=== PATIENT | female | born 1960 | race African-American/Black ===

== ENCOUNTER 2017-01-26 09:28 | Inpatient (IN) | payer MEDICAID, MEDICARE, OTHER ==
[~2017-01-26] VITALS: Ht 160 cm; Wt 79.5 kg
[~2017-01-26 09:28] MED LIST: ALBU8.5H3 INH; ALPR0.5T6 PO; ATOR40TA68 PO; BEN50 PO; DIGO125T PO; DULO30CA47 PO; GABA100C14 PO; LEVO100T87 PO; LEVO125T75 PO; LEVO500T72 PO; METF500T4 PO; PANT40TA4 PO; TADA20TA33 PO; TREP1.743 IH; ZOLP10TA5 PO
[2017-01-26] MEDS ORDERED: ALBUTEROL 0.5% (NEB) 2.5 MG/0.5 ML AMP HHN STA (09:40)
[2017-01-26] MEDS ORDERED: AZITHROMYCIN 500MG/NS (PMX) 250 ML IV STA (09:40)
[2017-01-26] MEDS ORDERED: SODIUM CHLORIDE 0.9% 1L BAG IV* STA (09:40)
[2017-01-26] MEDS ORDERED: CEFTRIAXONE 1 GM/50 ML (PMX) 50 ML IVPB STA (09:40)
[2017-01-26] MEDS ORDERED: METHYLPREDNISOLONE 125 MG INJ IV ONE (10:00)
[2017-01-26] MEDS ORDERED: IPRATROPIUM (NEB) 0.5 MG/2.5 ML AMP HHN ONE (10:00)
[2017-01-26 10:37] LABS: ADD SCAN DIFF NO
[2017-01-26 10:41] LABS: BASOPHIL # 0.1 10^3/ul (0.0-0.1); BASOPHILS % 1.3 % (0.0-2.0); EOSINOPHILS # 0.6 10^3/ul (0.0-0.5); EOSINOPHILS % 8.2 % (0.0-7.0); HEMATOCRIT 38.3 % (37.0-47.0); HEMOGLOBIN 12.2 g/dl (12.0-16.0); LYMPHOCYTES # 3.7 10^3/ul (0.8-2.9); LYMPHOCYTES % 52.9 % (15.0-51.0); MEAN CORPUSCULAR HGB CONC 31.9 g/dl (32.0-37.0); MEAN PLATELET VOLUME 11.8 fl (7.4-10.4); MONOCYTE # 0.7 10^3/ul (0.3-0.9); MONOCYTES % 10.4 % (0.0-11.0); NEUTROPHIL # 1.9 10^3/ul (1.6-7.5); NEUTROPHILS % 27.1 % (39.0-77.0); NUCLEATED RED BLOOD CELLS% 0.3 /100WBC (0.0-0.0); PLATELET COUNT 257 10^3/UL (140-415); RED BLOOD COUNT 4.21 10^6/ul (4.20-5.40); RED CELL DISTRIBUTION WIDTH 15.2 % (11.5-14.5)
--- NOTE | 2017-01-26 10:51 | RADRPT ---
PROCEDURE: Chest Radiograph. CLINICAL INDICATION: Shortness of breath TECHNIQUE: Single frontal chest radiograph. COMPARISON: Chest radiograph 11/26/2015 FINDINGS: Heart size within normal limits. Atherosclerotic calcifications are present. There is mild right b asilar atelectasis and associated elevation of the right hemidiaphragm. There is prominence of the right hilum which appears to be at least in part due to patient rotation. No confluent or lobar infi ltrate is seen. The bones are intact. IMPRESSION: 1. Right basilar atelectasis with associated elevation of the right hemidiaphragm. 2. Prominence of the right hilum is likely due in part to patient rotation. Consider CT chest if i ndicated. 3. Atherosclerotic vascular disease RPTAT: KK .Sven iLzarraga MD, Date Time Electronically viewed and signed by .Sven Lizarraga MD, MD on 01/26/2017 10:51 .B/
[2017-01-26 10:52] LABS: ALBUMIN 3.8 g/dl (3.3-4.9); CHLORIDE 102 mmol/L (97-110)
[2017-01-26 10:53] LABS: SODIUM 144 mmol/L (135-144)
[2017-01-26 10:55] LABS: ALBUMIN/GLOBULIN RATIO 0.86; ALKALINE PHOSPHATASE 327 IU/L (42-121); ANION GAP 14 (8-16); ASPARTATE AMINO TRANSFERASE 67 IU/L (15-46); BILIRUBIN,INDIRECT 0.2 mg/dl (0-1.1); BILIRUBIN,TOTAL 0.2 mg/dl (0.2-1.3); CARBON DIOXIDE 33 mmol/L (21-31); CREATININE 0.78 mg/dl (0.44-1.00); INR 0.91; PROTIME 12.2 Sec (12.2-14.2); TOTAL PROTEIN 8.2 g/dl (6.1-8.1)
[2017-01-26 10:56] LABS: ALANINE AMINOTRANSFERASE 52 IU/L (13-69); BLOOD UREA NITROGEN 16 mg/dl (7-20); CALCIUM 9.9 mg/dl (8.4-10.2); GLUCOSE 119 mg/dl (70-220); PARTIAL THROMBOPLASTIN TIME 25.6 Sec (25.0-35.0)
[2017-01-26 11:12] LABS: TROPONIN-I < 0.012 ng/ml (0.00-0.12)
[2017-01-26 12:36] LABS: ADD UMIC YES; URINE BILIRUBIN (Dip) NEGATIVE (NEGATIVE); URINE BLOOD (Dip) NEGATIVE (NEGATIVE); URINE COLOR LT. YELLOW (YELLOW); URINE GLUCOSE (Dip) NEGATIVE (NEGATIVE); URINE KETONES (Dip) NEGATIVE (NEGATIVE); URINE LEUKOCYTE ESTERASE (Dip) 1+ (NEGATIVE); URINE NITRITE (Dip) NEGATIVE (NEGATIVE); URINE TOTAL PROTEIN (Dip) NEGATIVE (NEGATIVE); URINE UROBILINOGEN (Dip) 0.2 E.U./dL (0.1-1.0)
[2017-01-26] MEDS ORDERED: DOCUSATE SODIUM 100 MG CAP PO PRN (13:00)
[2017-01-26] MEDS ORDERED: ALPRAZOLAM 0.5 MG TAB PO PRN (13:00)
[2017-01-26] MEDS ORDERED: ALBUTEROL 0.5% (NEB) 2.5 MG/0.5 ML AMP HHN PRN (13:00)
[2017-01-26] MEDS ORDERED: BISACODYL 10 MG SUPP PR PRN (13:00)
[2017-01-26] MEDS ORDERED: ZOLPIDEM 5 MG TAB PO PRN (13:00)
[2017-01-26] MEDS ORDERED: ACETAMINOPHEN 325 MG TAB PO PRN ×2 (13:00)
[2017-01-26] MEDS ORDERED: ONDANSETRON 4 MG INJ IV PRN ×2 (13:00)
[2017-01-26] MEDS ORDERED: morphine 2 MG INJ IV PRN (13:00)
[2017-01-26] MEDS ORDERED: MAGNESIUM HYDROXIDE 30ML CUP PO PRN (13:00)
[2017-01-26] MEDS ORDERED: NACL 0.9% 3 ML SYG IV SCH (13:00)
[2017-01-26] MEDS ORDERED: ALBUTEROL HFA 8 GM INHALER INH PRN (13:00)
[2017-01-26] MEDS ORDERED: TREPROSTINIL IH SCH (13:00)
--- NOTE | 2017-01-26 13:06 | ERA ---
ER Documentation Chief Complaint Date/Time DATE: 01/26/17 TIME: 13:05 Chief Complaint sob for the past 4 days. progressively getting worse. no fevers. coughing HPI Patient is a 56-year-old female with sarcoidosis, pulmonary hypertension, and diabetes. She has shortness of breath. She feels like this is similar to when she had pneumonia in the past. She flew to [place] last Wednesday. She does have trouble breathing. The symptoms have been worsening. She tried a nebulizer and oxygen at home. Upon review of of old medical record she has had multiple visits to the ER for various complaints. ROS All systems reviewed and are negative except as per history of present illness. Medications Home Meds Active Scripts Levofloxacin* (Levaquin*) 500 Mg Tablet, 500 MG PO DAILY, #7 TAB Prov:SEBAS ORTIZ MD 12/02/15 Reported Medications Albuterol Sulfate* (Proair HFA*) 8.5 Gm Hfa.aer.ad, 1 PUFF INH Q4 Y for WHEEZING AND SOB, #1 INHALER 11/15/15 Tadalafil (Adcirca) 20 Mg Tablet, 40 MG PO DAILY, TAB 11/15/15 Atorvastatin* (Atorvastatin*) 40 Mg Tablet, 40 MG PO QHS, #30 TAB 11/15/15 Digoxin* (Digoxin*) 0.125 Mg Tab, 0.125 MG PO DAILY, #30 TAB 11/15/15 Pantoprazole* (Pantoprazole*) 40 Mg Tablet.dr, 40 MG PO DAILY, TAB 11/15/15 Gabapentin* (Gabapentin*) 100 Mg Capsule, 100 MG PO TID, #90 CAP 11/15/15 Metformin* (Glucophage*) 500 Mg Tab, 250 MG PO BID, #30 TAB 11/15/15 Levothyroxine Sodium* (Levothyroxine Sodium*) 125 Mcg Tablet, 125 MCG PO BEFORE BREAKFAST, #30 TAB PER PT ALTERNATING WITH LEVOTHYROXINE 100 MCG AND LEVOTHYROXINE 125 11/15/15 Zolpidem Tartrate* (Zolpidem Tartrate*) 10 Mg Tablet, 10 MG PO QHS Y for INSOMNIA, #30 TAB 11/15/15 Duloxetine Hcl* (Duloxetine Hcl*) 30 Mg Capsule.dr, 30 MG PO DAILY, #30 CAP 11/15/15 Treprostinil (Tyvaso) 1.74 Mg/2.9 Ml Ampul.neb, 1.74 MG IH QID, EA 11/15/15 Alprazolam* (Alprazolam*) 0.5 Mg Tablet, 0.5 MG PO BID Y for ANXIETY, TAB 11/15/15 Diphenhydramine Hcl* (Benadryl*) 50 Mg Cap, 50 MG PO DAILY for ITCHING, CAP 11/15/15 Discontinued Reported Medications Levothyroxine Sodium* (Levothyroxine Sodium*) 100 Mcg Tablet, 100 MCG PO BEFORE BREAKFAST, #30 TAB PER PT ALTERNATING WITH LEVOTHYROXINE 125 MCG AND LEVOTHYROXINE 100 MCG 11/15/15 Allergies Allergies: Coded Allergies: No Known Drug Allergy (Verified Allergy, Unknown, 01/26/17) PMhx/Soc History of Surgery: Yes (Umbilical hernia repair, tummy tuck, spleenectomy, breast enhancement) Anesthesia Reaction: No Hx Neurological Disorder: No Hx Respiratory Disorders: Yes (Asthma, PNA, bronchitis, pulmonary HTN) Hx Cardiac Disorders: Yes (HTN) Hx Psychiatric Problems: Yes (Manic/depression) Hx Miscellaneous Medical Probl: Yes (sarcoidosis) Hx Alcohol Use: Yes (Vodka/wine 3x week) Hx Substance Use: No Hx Tobacco Use: No Smoking Status: Current every day smoker FmHx Family History: diabetes Physical Exam Vitals Vital Signs Date Time Temp Pulse Resp B/P Pulse Ox O2 Delivery O2 Flow Rate FiO2 01/26/17 12:33 78 19 115/78 94 Nasal Cannula 2.0 01/26/17 10:10 78 20 96 Nasal Cannula 2.0 01/26/17 10:10 2.0 01/26/17 09:46 Nasal Cannula 2.0 01/26/17 09:46 Nasal Cannula 2 01/26/17 09:31 98.5 94 30 137/60 89 Physical Exam Const: Moderate distress secondary to shortness of breath Head: Atraumatic Eyes: Normal Conjunctiva ENT: Normal External Ears, Nose and Mouth. Neck: Full range of motion..~ No meningismus. Resp: Significant wheezing diffusely with inability to speak in full sentences secondary to shortness of breath Cardio: Regular rate and rhythm, no murmurs Abd: Soft, non tender, non distended. Normal bowel sounds Skin: No petechiae or rashes Back: No midline or flank tenderness Ext: No cyanosis, or edema Neur: Awake and alert Psych: Normal Mood and Affect Result Diagram: 01/26/17 1005 01/26/17 1005 Results 24 hrs Laboratory Tests Test 01/26/17 10:05 01/26/17 12:00 Activated Partial Thromboplast Time 25.6Sec Alanine Aminotransferase (ALT/SGPT) 52IU/L Albumin 3.8g/dl Albumin/Globulin Ratio 0.86 Alkaline Phosphatase 327IU/L Anion Gap 14 Aspartate Amino Transf (AST/SGOT) 67IU/L Basophils # 0.110^3/ul Basophils % 1.3% Blood Urea Nitrogen 16mg/dl Calcium Level 9.9mg/dl Carbon Dioxide Level 33mmol/L Chloride Level 102mmol/L Creatinine 0.78mg/dl Direct Bilirubin 0.00mg/dl Eosinophils # 0.610^3/ul Eosinophils % 8.2% Globulin 4.40g/dl Glucose Level 119mg/dl Hematocrit 38.3% Hemoglobin 12.2g/dl INR International Normalized Ratio 0.91 Indirect Bilirubin 0.2mg/dl Lactic Acid Level 1.4mmol/L 3.4mmol/L Lymphocytes # 3.710^3/ul Lymphocytes % 52.9% Mean Corpuscular Hemoglobin 29.0pg Mean Corpuscular Hemoglobin Concent 31.9g/dl Mean Corpuscular Volume 91.0fl Mean Platelet Volume 11.8fl Monocytes # 0.710^3/ul Monocytes % 10.4% Neutrophils # 1.910^3/ul Neutrophils % 27.1% Nucleated Red Blood Cells # 0.010^3/ul Nucleated Red Blood Cells % 0.3/100WBC Platelet Count 15773^3/UL Potassium Level 5.0mmol/L Prothrombin Time 12.2Sec Prothrombin Time Ratio 1.0 Red Blood Count 4.2110^6/ul Red Cell Distribution Width 15.2% Sodium Level 144mmol/L Total Bilirubin 0.2mg/dl Total Protein 8.2g/dl Troponin I < 0.012ng/ml White Blood Count 7.010^3/ul Urine Bilirubin NEGATIVE Urine Clarity CLEAR Urine Color LT. YELLOW Urine Glucose NEGATIVE% Urine Hemoglobin NEGATIVE Urine Ketones NEGATIVE Urine Leukocyte Esterase 1+ Urine Microscopic RBC Pending Urine Microscopic WBC Pending Urine Nitrite NEGATIVE Urine Specific [place] 1.010 Urine Total Protein NEGATIVE Urine Urobilinogen 0.2 E.U./dL Urine pH 6.5 Current Medications Medications (Trade) Dose Ordered Sig/Linda Route PRN Reason Start Time Stop Time Status Last Admin Dose Admin Sodium Chloride 2460 ml 2,460 ml BOLUS OVER 2 HOURS STAT IV* 01/26/17 09:40 01/26/17 09:42 DC 01/26/17 10:11 Ceftriaxone Sodium 50 ml @ 100 mls/hr ONCE STAT IVPB 01/26/17 09:40 01/26/17 10:09 DC 01/26/17 10:10 Azithromycin (Zithromax 500mg/ NS (Pmx)) 250 ml @ 250 mls/hr ONCE STAT IV 01/26/17 09:40 01/26/17 10:39 DC 01/26/17 10:57 Albuterol (Proventil 0.5% (Neb)) 15 mg ONCE STAT HHN 01/26/17 09:40 01/26/17 09:42 DC 01/26/17 10:09 Ipratropium [place] (Atrovent 0.02% (Neb)) 0.5 mg ONCE ONCE HHN 01/26/17 10:00 01/26/17 10:01 DC Methylprednisolone Sodium Succinate (Solu-Medrol) 125 mg ONCE ONCE IV 01/26/17 10:00 01/26/17 10:01 DC 01/26/17 10:07 Ondansetron HCl (Zofran Inj) 4 mg BRIDGE ORDER PRN IV NAUSEA AND/OR VOMITING 01/26/17 13:00 01/27/17 12:59 Acetaminophen (Tylenol Tab) 650 mg ER BRIDGE PRN PO MILD PAIN/FEVER 01/26/17 13:00 01/27/17 12:59 Albuterol (Ventolin Hfa) 1 puff Q4 PRN INH WHEEZING AND SOB 01/26/17 13:00 01/26/17 13:00 DC Alprazolam (Xanax) 0.5 mg BID PRN PO ANXIETY 01/26/17 13:00 UNV Atorvastatin Calcium (Lipitor) 40 mg QHS PO 01/26/17 21:00 UNV Digoxin (Digoxin) 0.125 mg DAILY PO 01/27/17 09:00 UNV Diphenhydramine HCl (Benadryl) 50 mg DAILY PO 01/27/17 09:00 UNV Duloxetine HCl (Cymbalta) 30 mg DAILY PO 01/27/17 09:00 UNV Gabapentin (Neurontin) 100 mg TID PO 01/26/17 13:00 UNV Levothyroxine Sodium (Synthroid) 125 mcg BEFORE BREAKFAST PO 01/27/17 07:00 UNV Metformin HCl (Glucophage) 250 mg BID PO 01/26/17 21:00 UNV Pantoprazole (Protonix Tab) 40 mg DAILY PO 01/27/17 09:00 UNV Zolpidem Tartrate (Ambien) 10 mg QHS PRN PO INSOMNIA 01/26/17 13:00 UNV Miscellaneous Information 40 mg DAILY PO 01/27/17 09:00 UNV Miscellaneous Information 1.74 mg 1.74 mg QID IH 01/26/17 13:00 UNV Levofloxacin/ Dextrose 150 ml @ 100 mls/hr Q24H IVPB 01/26/17 13:00 UNV Sodium Chloride (NS) 1,000 ml @ 75 mls/hr [id number] IV 01/26/17 12:55 UNV IV Flush (NS 3 ml) 3 ml PER PROTOCOL IV 01/26/17 13:00 UNV Ondansetron HCl (Zofran Inj) 4 mg Q6H PRN IV NAUSEA AND/OR VOMITING 01/26/17 13:00 UNV Methylprednisolone Sodium Succinate (Solu-Medrol) 60 mg Q6 IV 01/26/17 18:00 UNV Acetaminophen (Tylenol Tab) 650 mg Q6H PRN PO PAIN LEVEL 1-3 OR FEVER 01/26/17 13:00 UNV Morphine Sulfate (morphine) 2 mg Q4H PRN IV PAIN LEVEL 7-10 01/26/17 13:00 UNV Docusate Sodium (Colace) 100 mg Q12H PRN PO CONSTIPATION 01/26/17 13:00 UNV Magnesium Hydroxide (Milk Of Mag) 30 ml DAILY PRN PO CONSTIPATION 01/26/17 13:00 UNV Bisacodyl (Dulcolax Supp) 10 mg DAILY PRN [place] CONSTIPATION 01/26/17 13:00 UNV Pantoprazole (Protonix Tab) 40 mg DAILY@06 PO 01/27/17 06:00 UNV Enoxaparin Sodium (Lovenox) 40 mg DAILY SC 01/27/17 09:00 UNV Albuterol (Proventil 0.5% (Neb)) 2.5 mg Q8 HHN 01/26/17 14:00 UNV Albuterol (Proventil 0.5% (Neb)) 2.5 mg Q4H RESP THERAPY PRN HHN SHORTNESS OF BREATH 01/26/17 13:00 UNV Procedures/MDM EKG read by me: Rate/Rhythm: Regular rate and rhythm at a rate of 81 Intervals: Normal Impression: No evidence of ischemia or arrhythmia Chest x-ray shows no pneumonia per radiology. Admit MDM: Patient's infectious symptoms have not stabilized and the patient is at risk of rapid decompensation. The patient will be admitted for careful hydration, antibiotic therapy, and infectious source control. Severe Sepsis criteria: Infectious source: Bronchitis End organ damage indicated by: Lactate greater than 2 Sepsis Management: Time of recognition of sepsis: 12:00 Within 3 hours of recognition: Blood cultures x 2 before broad-spectrum antibiotics: Yes 30 ml/kg NS bolus Completed Initial lactate 1.4 Repeat lactate 3.4 Time of recognition of septic shock: No septic shock Septic Shock Assessment: Any lactic acid > 4.0 No Persistent hypotension (SBP < 90 or 40 mmHg drop, MAP < 65) despite 30 mL/kg IV fluid bolus No Volume Re-assessment for Septic Shock (post 30 ml/kg bolus): No septic shock at this time Persistent Hypotension Treatment: Comfort care No Central line Not Required Vasopressor started Not required I considered further perfusion assessment with CVP measurement, SCVO2, bedside ultrasound volume assessment, passive leg raise, trial of further fluid bolus. And proceeded with 30 ml/kg fluid bolus of NSS, broad spectrum antibiotics, and admission. The patient was also given a breathing treatment and steroids for significant wheezing. She did have recent travel but at this point I doubt true pulmonary embolism as the patient has an exam with significant wheezing. Accepting Care Team Current data and ongoing care discussed. Admitting Physician: Dr. Keita as the patient has regal ACO Transitions Rn Care Coordinator(s): None Outstanding Data: Culture results Critical Care: Critical care time 35 minutes excluding all billable procedures Emergent fluid management while maintaining close respiratory support. Provision of immediate and broad-spectrum antibiotic therapy. Simultaneous assessment for possible sources in order to direct targeted therapy. Consideration for invasive and chemical support to prevent cardiopulmonary collapse. Departure Diagnosis: Primary Impression: Severe sepsis Additional Impressions: Shortness of breath Bronchitis Condition: SOPHIA Eckert MD Jan 26, 2017 13:06
[2017-01-26 13:15] LABS: BACTERIA,URINE RARE; URINE RBCS NONE SEEN /HPF (0)
--- NOTE | 2017-01-26 14:03 | CONS ---
Date/Time of Note Date/Time of Note DATE: 01/26/17 TIME: 13:56 Assessment/Plan Assessment/Plan Additional Assessment/Plan Chest x-ray was reviewed from today which is showing a right hilar prominence likely from underlying pulmonary hypertension. There are minimal if any interstitial changes present bilaterally. Assessment and recommendation; next 1. Patient admitted for shortness of breath which is likely on account of underlying asthma exacerbation. Based on chest x-ray I do not see any evidence of recurrence of sarcoidosis. 2. Multiple other comorbidities which all appear fairly stable. 3. Possibly superimposed acute bronchitis. Continue current treatment. According to the patient she is "100%" feeling better. Consultation Date/Type/Reason Admit Date/Time Date of Consultation: Jan 26, 2017 Type of Consultation: Pulmonary Reason for Consultation Consultation obtained for evaluation and treatment of asthma exacerbation and sarcoidosis. History of presenting; patient is a pleasant 56-year-old F [place] lady who came into the emergency room with a 3-4 day history of increasing shortness of breath chest congestion sputum production and wheezing. The patient was in [facility] and was trying to get back to [place] and en route , the patient became short of breath with coughing, wheezing .she was attended to by paramedics and according to her she did well but over the last 24-36 hours her condition again became worse with increasing shortness of breath coughing and wheezing at that point she decided to come to the emergency room. The patient has been diagnosed with asthma exacerbation and acute bronchitis. She denies any fever chills chest pain. Denies any sinus symptoms. Denies any abdominal pain nausea vomiting. Past medical history; 1. History of pulmonary sarcoidosis diagnosed in 1999 with a lung biopsy. The patient has had 2 relapses and according to her she was supposed to be on long- term prednisone but because of significant side effect the patient has opted not to take long-term prednisone treatment. 2. History of asthma. 3. 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 4. Hypothyroidism. 5. Neuropathy. 6. History of breast implants. 7. History of umbilical hernia ,currently awaiting evaluation. 8. History of diabetes. 9. Pulmonary hypertension. Next Medications; were reviewed. Next Allergies; none. Social history; most of any alcohol tobacco or drug abuse. Family history; she is single she has 1 son. No show any sarcoidosis in the family. Occupational history; patient is a student. Has had miscellaneous off his drops. Review of systems; denies any headache, any visual changes. Any hearing loss. Any sinus symptoms. Denies any chest pain, angina. Denies any fever chills. Denies any sore throat, body aches, myalgias. Denies any skin changes. Any arthritis. No wheezing shortness of breath as outlined above. Denies any hemoptysis. Patient has gained weight. Denies any edema, orthopnea. Does complain of chronic dyspnea on exertion. Denies any urinary symptoms, any melena or hematochezia. General examination; middle-aged woman currently in no distress awake and alert. Social History Smoking Status: Current every day smoker Exam/Review of Systems Vital Signs Vitals Vital Signs Date Time Temp Pulse Resp B/P Pulse Ox O2 Delivery O2 Flow Rate FiO2 01/26/17 13:24 78 16 115/78 98 Nasal Cannula 2.0 01/26/17 09:31 98.5 Exam HEENT examination; supple neck, no JVD. No lymphadenopathy. Midline trachea. Good dentition. Pupils are midsize and reactive to light. No thyromegaly. No neck bruits. Chest examination; bilateral wheezing. S1-S2 audible, no murmurs. Regular rhythm. Abdomen examination; soft, protuberant. Bowel sounds audible. There is a left upper quadrant scar. Abdomen is nontender. Extremity examination; no peripheral edema. No clubbing. Pulses 2+ bilaterally. [employer] examination; cranial nerves are normal. There is no motor deficit. Results Result Diagram: 01/26/17 1005 01/26/17 1005 Results 24 hrs Laboratory Tests Test 01/26/17 10:05 01/26/17 12:00 Activated Partial Thromboplast Time 25.6 Alanine Aminotransferase (ALT/SGPT) 52 Albumin 3.8 Albumin/Globulin Ratio 0.86 Alkaline Phosphatase 327 H Anion Gap 14 Aspartate Amino Transf (AST/SGOT) 67 H Basophils # 0.1 Basophils % 1.3 Blood Urea Nitrogen 16 Calcium Level 9.9 Carbon Dioxide Level 33 H Chloride Level 102 Creatinine 0.78 Direct Bilirubin 0.00 Eosinophils # 0.6 H Eosinophils % 8.2 H Globulin 4.40 H Glucose Level 119 Hematocrit 38.3 Hemoglobin 12.2 INR International Normalized Ratio 0.91 Indirect Bilirubin 0.2 Lactic Acid Level 1.4 3.4 H Lymphocytes # 3.7 H Lymphocytes % 52.9 H Mean Corpuscular Hemoglobin 29.0 Mean Corpuscular Hemoglobin Concent 31.9 L Mean Corpuscular Volume 91.0 Mean Platelet Volume 11.8 #H Monocytes # 0.7 Monocytes % 10.4 Neutrophils # 1.9 Neutrophils % 27.1 L Nucleated Red Blood Cells # 0.0 Nucleated Red Blood Cells % 0.3 H Platelet Count 257 Potassium Level 5.0 Prothrombin Time 12.2 Prothrombin Time Ratio 1.0 Red Blood Count 4.21 Red Cell Distribution Width 15.2 H Sodium Level 144 Total Bilirubin 0.2 Total Protein 8.2 H Troponin I < 0.012 White Blood Count 7.0 # Urine Bacteria RARE Urine Bilirubin NEGATIVE Urine Clarity CLEAR Urine Color LT. YELLOW Urine Epithelial Cells RARE Urine Glucose NEGATIVE Urine Hemoglobin NEGATIVE Urine Ketones NEGATIVE Urine Leukocyte Esterase 1+ H Urine Microscopic RBC NONE SEEN Urine Microscopic WBC 0-2 Urine Nitrite NEGATIVE Urine Specific [place] 1.010 Urine Total Protein NEGATIVE Urine Urobilinogen 0.2 E.U./dL Urine pH 6.5 Medications Medications Current Medications Alprazolam (Xanax) 0.5 mg BID PRN PO ANXIETY; Start 01/26/17 at 13:00; Status UNV Atorvastatin Calcium (Lipitor) 40 mg QHS PO ; Start 01/26/17 at 21:00; Status UNV Digoxin (Digoxin) 0.125 mg DAILY PO ; Start 01/27/17 at 09:00; Status UNV Diphenhydramine HCl (Benadryl) 50 mg DAILY PO ; Start 01/27/17 at 09:00; Status UNV Duloxetine HCl (Cymbalta) 30 mg DAILY PO ; Start 01/27/17 at 09:00; Status UNV Gabapentin (Neurontin) 100 mg TID PO ; Start 01/26/17 at 13:00; Status UNV Metformin HCl (Glucophage) 250 mg BID PO ; Start 01/26/17 at 21:00; Status UNV Pantoprazole (Protonix Tab) 40 mg DAILY PO ; Start 01/27/17 at 09:00; Status UNV Zolpidem Tartrate (Ambien) 10 mg QHS PRN PO INSOMNIA; Start 01/26/17 at 13:00; Status UNV Miscellaneous Information 40 mg DAILY PO ; Start 01/27/17 at 09:00; Status UNV Miscellaneous Information 1.74 mg 1.74 mg QID IH ; Start 01/26/17 at 13:00; Status UNV Levofloxacin/ Dextrose 150 ml @ 100 mls/hr Q24H IVPB ; Start 01/26/17 at 13:00 ; Status UNV Sodium Chloride (NS) 1,000 ml @ 75 mls/hr [id number] IV ; Start 01/26/17 at 12:55 ; Status UNV Ondansetron HCl (Zofran Inj) 4 mg Q6H PRN IV NAUSEA AND/OR VOMITING; Start at 13:00; Status UNV Methylprednisolone Sodium Succinate (Solu-Medrol) 60 mg Q6 IV ; Start 01/26/17 at 18:00; Status UNV Acetaminophen (Tylenol Tab) 650 mg Q6H PRN PO PAIN LEVEL 1-3 OR FEVER; Start at 13:00; Status UNV Morphine Sulfate (morphine) 2 mg Q4H PRN IV PAIN LEVEL 7-10; Start 01/26/17 at 13:00; Status UNV Docusate Sodium (Colace) 100 mg Q12H PRN PO CONSTIPATION; Start 01/26/17 at 13: 00; Status UNV Magnesium Hydroxide (Milk Of Mag) 30 ml DAILY PRN PO CONSTIPATION; Start at 13:00; Status UNV Bisacodyl (Dulcolax Supp) 10 mg DAILY PRN [place] CONSTIPATION; Start 01/26/17 at 13 :00; Status UNV Pantoprazole (Protonix Tab) 40 mg DAILY@06 PO ; Start 01/27/17 at 06:00; Status UNV Enoxaparin Sodium (Lovenox) 40 mg DAILY SC ; Start 01/27/17 at 09:00; Status UNV Albuterol (Proventil 0.5% (Neb)) 2.5 mg Q8 HHN ; Start 01/26/17 at 14:00; Status UNV CATHERINE ESPINAL Jan 26, 2017 14:03
[2017-01-26] MEDS ORDERED: DEXTROSE 50% 50 ML SYRINGE IV PRN ×4 (14:30→15:30)
[2017-01-26] MEDS ORDERED: GLUCOSE GEL 15 GRAM TUBE PO PRN ×4 (14:30→15:30)
[2017-01-26] MEDS ORDERED: LEVOFLOXACIN 750MG/D5W (PMX) 150 ML IVPB SCH (14:30)
[2017-01-26] MEDS ORDERED: GLUCAGON 1 MG INJ IM PRN ×2 (14:30→15:30)
[2017-01-26] MEDS ORDERED: GLUCOSE GEL 15 GRAM TUBE BUCCAL PRN ×2 (14:30→15:30)
[2017-01-26 14:39] VITALS: BP 142/71; PULSE 76; RESP 22
[2017-01-26 14:41] VITALS: Ht 160 cm; Wt 79.5 kg
[2017-01-26] MEDS: SOD CHLORIDE 0.9% 1,000 ML IV SCH (15:24)
[2017-01-26] MEDS: [UNRECOGNIZED DRUG - REMARK] XX SCH ×2 (15:30→23:12)
[2017-01-26] MEDS: ALBUTEROL 0.5% (NEB) 2.5 MG/0.5 ML AMP HHN SCH (16:08)
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
[2017-01-26] MEDS: METHYLPREDNISOLONE 125 MG INJ IV SCH ×2 (17:09→23:09)
[2017-01-26] MEDS: INSULIN ASPART [NOVOLOG] 3 ML PEN SC SCH (17:09)
[2017-01-26] MEDS: metFORMIN 500 MG TAB PO SCH (17:10)
[2017-01-26] MEDS: LEVOFLOXACIN 750MG/D5W (PMX) 150 ML IVPB SCH (17:11)
[2017-01-26 19:58] VITALS: BP 164/92; PULSE 85; RESP 18
[2017-01-26] MEDS: CARISOPRODOL 350 MG TAB PO SCH (20:11)
[2017-01-26] MEDS: IBUPROFEN 600 MG TAB PO PRN (20:16)
[2017-01-26] MEDS: GABAPENTIN 100 MG CAP PO SCH (20:26)
[2017-01-26] MEDS ORDERED: ATORVASTATIN 40 MG TAB PO SCH (21:00)
[2017-01-26 23:16] VITALS: BP 117/68; PULSE 88
[2017-01-27] MEDS: SOD CHLORIDE 0.9% 1,000 ML IV SCH (02:37)
[2017-01-27] MEDS ORDERED: PANTOPRAZOLE (EC) 40 MG TAB PO SCH ×2 (06:00→09:00)
[2017-01-27] MEDS: METHYLPREDNISOLONE 125 MG INJ IV SCH ×2 (06:15→12:00)
[2017-01-27] MEDS ORDERED: LEVOTHYROXINE 125 MCG TAB PO SCH (07:00)
[2017-01-27 07:14] LABS: ADD SCAN DIFF NO; HEMATOCRIT 35.2 % (37.0-47.0); HEMOGLOBIN 11.3 g/dl (12.0-16.0); LYMPHOCYTES # 1.7 10^3/ul (0.8-2.9); LYMPHOCYTES % 29.3 % (15.0-51.0); MEAN CORPUSCULAR HEMOGLOBIN 29.1 pg (29.0-33.0); MEAN CORPUSCULAR HGB CONC 32.1 g/dl (32.0-37.0); MEAN CORPUSCULAR VOLUME 90.7 fl (82.0-101.0); MEAN PLATELET VOLUME 11.8 fl (7.4-10.4); MONOCYTE # 0.1 10^3/ul (0.3-0.9); MONOCYTES % 1.6 % (0.0-11.0); NEUTROPHILS % 68.9 % (39.0-77.0); NUCLEATED RED BLOOD CELLS% 0.3 /100WBC (0.0-0.0); PLATELET COUNT 264 10^3/UL (140-415); RED BLOOD COUNT 3.88 10^6/ul (4.20-5.40); RED CELL DISTRIBUTION WIDTH 15.3 % (11.5-14.5); WHITE BLOOD COUNT 5.7 10^3/ul (4.8-10.8)
[2017-01-27 07:20] LABS: ALBUMIN 3.6 g/dl (3.3-4.9)
[2017-01-27 07:21] LABS: POTASSIUM 4.7 mmol/L (3.5-5.1)
[2017-01-27] MEDS: ALBUTEROL 0.5% (NEB) 2.5 MG/0.5 ML AMP HHN SCH ×2 (07:22)
[2017-01-27 07:23] LABS: ALBUMIN/GLOBULIN RATIO 0.85; BILIRUBIN,INDIRECT 0.1 mg/dl (0-1.1); BILIRUBIN,TOTAL 0.1 mg/dl (0.2-1.3); CREATININE 0.68 mg/dl (0.44-1.00); TOTAL PROTEIN 7.8 g/dl (6.1-8.1)
[2017-01-27 07:24] LABS: CALCIUM 9.6 mg/dl (8.4-10.2); MAGNESIUM 1.5 mg/dl (1.7-2.5)
[2017-01-27] MEDS: [UNRECOGNIZED DRUG - REMARK] XX SCH ×2 (07:30→13:23)
[2017-01-27 08:11] VITALS: BP 116/68; RESP 20
[2017-01-27] MEDS: CARISOPRODOL 350 MG TAB PO SCH (08:12)
[2017-01-27] MEDS: metFORMIN 500 MG TAB PO SCH (08:13)
[2017-01-27] MEDS: INSULIN ASPART [NOVOLOG] 3 ML PEN SC SCH (08:16)
[2017-01-27] MEDS: IBUPROFEN 600 MG TAB PO PRN (08:23)
[2017-01-27] MEDS ORDERED: DIPHENHYDRAMINE 50 MG CAP PO PRN (09:00)
[2017-01-27] MEDS ORDERED: DIPHENHYDRAMINE 50 MG CAP PO SCH (09:00)
[2017-01-27] MEDS ORDERED: ENOXAPARIN 40 MG/0.4 ML SYG SC SCH (09:00)
[2017-01-27] MEDS ORDERED: TADALAFIL 40 MG PO SCH (09:00)
[2017-01-27] MEDS: GABAPENTIN 100 MG CAP PO SCH ×2 (09:00→13:00)
[2017-01-27] MEDS ORDERED: DULOXETINE 30 MG CAP DR PO SCH (09:00)
--- NOTE | 2017-01-27 09:47 | RADRPT ---
PROCEDURE: XR Chest AP portable CLINICAL INDICATION: Hypoxemia TECHNIQUE: An AP portable radiograph of the chest was submitted. COMPARISON: 01/26/2017 FINDINGS: Support Hardware: None Cardiovascular: The cardiovascular silhouette appears unremarkable. The right hilum remains prominen t. Lung Yeager: Slight pleural parenchymal scarring is again seen at the right pulmonary apex. The monika g yeager are otherwise clear. Pleural Spaces: No pneumothorax or pleural effusion is identified. Osseous Structures: The osseous structures appear intact. Soft Tissues: The soft tissues appear generous. IMPRESSION: 1. Mild pleural parenchymal scarring is again seen at the right pulmonary apex. 2. The right hilum remains prominent. This is suspicious for underlying right hilar adenopathy. Physician Apryl Date Time Electronically viewed and signed by Physician Apryl on 01/27/2017 09:47 RH/
--- NOTE | 2017-01-27 11:52 | PN ---
DATE: 01/27/2017 PULMONARY FOLLOWUP SUBJECTIVE: The patient Liza is stable this morning. Still has some shortness of breath on exer tion with expiratory wheeze. PHYSICAL EXAMINATION: VITAL SIGNS: Temperature 98, pulse 78, blood pressure 116/63, O2 saturation 96% on 2 L nasal cannul a. NECK: Supple. No JVD or lymphadenopathy. CARDIAC: S1, S2, no added sounds or murmurs. CHEST: Diminished air entry bilaterally. ABDOMEN: Soft, nontender. No guarding or rebound. EXTREMITIES: No cyanosis, clubbing, edema. NEUROLOGIC: Grossly intact. No focal deficits. LABORATORY DATA: White count 5.7, hemoglobin 11.3, platelets 263. BUN 18, creatinine 0.68. IMAGING: Chest x-ray shows mild pleural scarring right apex and prominent right hilum. IMPRESSION AND PLAN: 1. Acute bronchitis. 2. History of sarcoidosis with history of splenectomy, previously followed by Dr. Callie Niño at [facility], now followed by Dr. Genevieve Berger at [facility]. 3. History of pulmonary hypertension on Adcirca for pulmonary hypertension, followed by Dr. Berger at [facility]. 4. History of hypoxemia, currently not on home O2. PLAN: 1. Continued supplemental O2. 2. Continue bronchodilators. 3. Continue steroids. 4. Resumption of pulmonary hypertension medications. 5. Follow up with [facility] pulmonary clinic. Dictated By: IFDE ALEGRIA/TRISTAN Conf#: [id number] DID#: [id number]
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
--- NOTE | 2017-01-27 12:44 | PDOCDIS ---
Discharge Instructions CONDITION Patient Condition: Stable HOME CARE INSTRUCTIONS: Special Diet: ADA diet ACTIVITY: Activity Restrictions: Slowly Increase Activity FOLLOW UP/APPOINTMENTS Appointments Follow up with PCP within 1 week Follow up with [facility] pulmonary within 1 to 2 weeks SONDRA AGUERO Jan 27, 2017 12:44
[2017-01-27] MEDS ORDERED: LEVO750T25 PO (12:46)
[2017-01-27] MEDS ORDERED: PANT40TA4 PO (12:46)
[2017-01-27] MEDS ORDERED: MED4DP PO (12:46)
[2017-01-27] MEDS ORDERED: DIGOXIN 0.125 MG TAB PO SCH (13:00)
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
[2017-01-27] MEDS: LEVOFLOXACIN 750MG/D5W (PMX) 150 ML IVPB SCH (15:18)
[2017-01-27] MEDS ORDERED: METHYLPREDNISOLONE 125 MG INJ IV SCH (21:00)
== END 2017-01-27 17:09 | disposition home or self-care (01) | DRG 202 ==
LOC: E/R 09:28 → PP2 12:48
PROVIDERS: ADMIT Internal Medicine; ATTEND Internal Medicine
DX: J20.9 Acute bronchitis, unspecified (principal); J45.901 Unspecified asthma with (acute) exacerbation; I27.2 Other secondary pulmonary hypertension; D86.0 Sarcoidosis of lung; G62.9 Polyneuropathy, unspecified; E11.9 Type 2 diabetes mellitus without complications; E03.9 Hypothyroidism, unspecified; G89.29 Other chronic pain
CPT/HCPCS: 36415; 71010; 80053; 81001; 81003; 82962; 83036; 83605; 83735; 84484; 85025; 85610; 85730; 87040; 87086; 93005; 94640; 94644; 94664; 96374; 96375; J0456; J0696; J1650; J1815; J1956; J2930; J7030

== ENCOUNTER 2018-07-13 19:30 | Inpatient (IN) | END 2018-07-14 15:15 | disposition home or self-care (01) | DRG 864 ==

== ENCOUNTER 2019-06-19 11:18 | Observation (INO) | payer MEDICARE, OTHER ==
[~2019-06-19] VITALS: Ht 160 cm; Wt 78.6 kg
[~2019-06-19 11:18] MED LIST changes: +ALBU2.5V3 NEB; -ALBU8.5H3 INH; +ALBU90AE INHALATION; -ATOR40TA68 PO; -DIGO125T PO; -DULO30CA47 PO; +ESCI20TA38 PO; +HYDR50TA15 PO; +IBUP-1541 PO; -LEVO100T87 PO; -LEVO125T75 PO; +LEVO500T48 PO; -LEVO500T72 PO; +LOSA25TA12 PO; +METF500T24 PO; -METF500T4 PO; +MULT-105 PO; +MUPI22OI2 TOP; +SULF-182 PO; +TADA20TA PO; -TADA20TA33 PO; -TREP1.743 IH
--- NOTE | 2019-06-19 11:30 | ERD ---
ER Documentation Chief Complaint Chief Complaint sob and leg swelling x 2 days HPI The patient is a 58-year-old female, resenting to the ER because of acute dyspnea, bilateral leg edema, orthopnea, PND for the last 2 days. She had s imilar symptoms previously, denies fever, cough, neck pain, chest pain, complains of chronic abdominal pain, denies dysuria, diarrhea, constipation. She does not smoke, use 2 L nasal cannula continuously Medical history: CAD, asthma, sarcoidosis, pulmonary hypertension, depression, anxiety Past surgical history: Umbilical neuropathy, abdominoplasty, breast implant, splenectomy ROS All systems reviewed and are negative except as per history of present illness. Medications Home Meds Reported Medications Zolpidem Tartrate* (Zolpidem Tartrate*) 10 Mg Tablet, 10 MG PO QHS PRN for INSOMNIA, #30 TAB 07/13/18 Pantoprazole* (Pantoprazole*) 40 Mg Tablet.dr, 40 MG PO AC BREAKFAST, TAB 07/13/18 Multivitamin with Minerals (Multivitamins with Minerals) 1 Each Tablet, 1 EACH PO DAILY, TAB 07/13/18 Metformin Hcl* (Metformin Hcl*) 500 Mg Tablet, 250 MG PO WITH BREAKFAST DINNE, #60 TAB 07/13/18 Losartan Potassium* (Losartan Potassium*) 25 Mg Tablet, 25 MG PO DAILY, TAB 07/13/18 Hydroxyzine Hcl* (Hydroxyzine Hcl*) 50 Mg Tablet, 50 MG PO QHS PRN for ITCHING, #30 TAB 07/13/18 Gabapentin* (Gabapentin*) 100 Mg Capsule, 100 MG PO NEEDED, #90 CAP TAKE 1 TO 3 CAP PRN 07/13/18 Escitalopram Oxalate* (Escitalopram Oxalate*) 20 Mg Tablet, 20 MG PO DAILY, #30 TAB 07/13/18 Diphenhydramine Hcl* (Benadryl*) 50 Mg Cap, 50 MG PO NEEDED PRN for ITCHING, CAP 07/13/18 Alprazolam* (Alprazolam*) 0.5 Mg Tablet, 0.5 MG PO Q8H PRN for ANXIETY, TAB 07/13/18 Albuterol Sulfate (Proair Respiclick) 90 Mcg Aer.pow.ba, 1 PUFF INHALATION Q4 PRN for WHEEZING AND SOB, #1 BOTTLE 07/13/18 Albuterol Sulfate* (Albuterol Sulfate* Neb) 0.083%-3 Ml Neb, 2.5 MG NEB Q3H PRN for WHEEZING AND SOB, #30 VIAL 07/13/18 Discontinued Reported Medications Tadalafil (Cialis) 20 Mg Tablet, 20 MG PO DAILY, TAB 07/13/18 Ibuprofen* (Ibuprofen*) 400 Mg Tablet, 400 MG PO Q8H PRN for PAIN, TAB 07/13/18 Discontinued Scripts Levofloxacin* (Levaquin*) 500 Mg Tablet, 500 MG PO DAILY for 5 Days, TAB Prov:LACISONDRA Mcclain 07/14/18 Sulfamethoxazole/Trimethoprim (Sulfamethoxazole-Tmp Ds Tablet) 1 Each Tablet, 1 TAB PO BID for 5 Days, TAB Prov:LACISONDRA 07/14/18 Mupirocin* (Bactroban*) 2% -22 Gram Oint...g., 1 APPLIC TOP TID, #1 TUB Prov:LACIDavidDeyaniraLOUANNVIOLET Mcclain 07/14/18 Allergies Allergies: Coded Allergies: No Known Drug Allergy (Verified Allergy, Unknown, 07/13/18) PMhx/Soc History of Surgery: Yes (r heart catheterization, umbilical hernia repair, tummy tuck, breast enhanc) Anesthesia Reaction: No Hx Neurological Disorder: No Hx Respiratory Disorders: Yes (asthma, bronchitis, sarcoidosis) Hx Cardiac Disorders: Yes (HTN, r heart catheterization, pulmonary HTN, high chol) Hx Psychiatric Problems: Yes (anxiety) Hx Miscellaneous Medical Probl: Yes Hx Alcohol Use: No Hx Substance Use: No Hx Tobacco Use: No Physical Exam Vitals Vital Signs Date Temp Pulse Resp B/P (MAP) Pulse Ox O2 O2 Flow FiO2 Time Delivery Rate 06/19/19 97.9 100 18 107/63 98 Nasal 2.0 16:12 (78) Cannula 06/19/19 97.9 100 20 95/64 (74) 98 Nasal 2.0 15:01 Cannula 06/19/19 97.9 96 20 106/75 98 Nasal 2.0 14:00 (85) Cannula 06/19/19 Nasal 2 11:43 Cannula 06/19/19 Nasal 2.0 11:43 Cannula 06/19/19 97.9 105 22 115/80 97 Nasal 2.0 11:43 (92) Cannula 06/19/19 97.9 109 22 110/56 91 11:24 (74) Physical Exam Const: No acute distress. Head: Atraumatic. Eyes: Normal Conjunctiva. ENT: Normal External Ears, Nose and Mouth. Neck: Full range of motion. No meningismus. Resp: Decreased breath sounds bilaterally. Basilar crackle Cardio: Regular rate and rhythm. Abd: Soft, non distended, normal bowel sounds, non tender. Skin: No petechiae or rashes. Back: No midline or flank tenderness. Ext: Bilateral leg edema, mild bilateral calf tenderness Neur: Awake and alert. No focal deficit Psych: Normal Mood and Affect. Result Diagram: 06/19/19 1148 06/19/19 1148 Results 24 hrs Laboratory Tests Test 06/19/19 11:48 White Blood Count 6.2 10^3/ul Red Blood Count 4.39 10^6/ul Hemoglobin 10.8 g/dl Hematocrit 35.3 % Mean Corpuscular Volume 80.4 fl Mean Corpuscular Hemoglobin 24.6 pg Mean Corpuscular Hemoglobin Concent 30.6 g/dl Red Cell Distribution Width 24.9 % Platelet Count 163 10^3/UL Mean Platelet Volume fl Immature Granulocytes % 0.600 % Neutrophils % 50.5 % Lymphocytes % 31.3 % Monocytes % 15.7 % Eosinophils % 0.8 % Basophils % 1.1 % Nucleated Red Blood Cells % 1.9 /100WBC Immature Granulocytes # 0.040 10^3/ul Neutrophils # 3.1 10^3/ul Lymphocytes # 1.9 10^3/ul Monocytes # 1.0 10^3/ul Eosinophils # 0.1 10^3/ul Basophils # 0.1 10^3/ul Nucleated Red Blood Cells # 0.1 10^3/ul Prothrombin Time 15.3 Sec Prothrombin Time Ratio 1.2 INR International Normalized Ratio 1.20 Activated Partial Thromboplast Time 31.5 Sec D-Dimer 3367.84 ng/ml D-Dimer Comment Sodium Level 137 mmol/L Potassium Level 3.6 mmol/L Chloride Level 89 mmol/L Carbon Dioxide Level 36 mmol/L Anion Gap 12 Blood Urea Nitrogen 11 mg/dl Creatinine 1.13 mg/dl Est Glomerular Filtrat Rate mL/min > 60 mL/min Glucose Level 136 mg/dl Hemoglobin A1c 6.7 % Calcium Level 9.2 mg/dl Magnesium Level 0.8 mg/dl Total Bilirubin 2.2 mg/dl Direct Bilirubin 0.60 mg/dl Indirect Bilirubin 1.6 mg/dl Aspartate Amino Transf (AST/SGOT) 267 IU/L Alanine Aminotransferase (ALT/SGPT) 288 IU/L Alkaline Phosphatase 589 IU/L Troponin I 0.033 ng/ml B-Type Natriuretic Peptide 3070 PG/ML Total Protein 8.0 g/dl Albumin 3.9 g/dl Globulin 4.10 g/dl Albumin/Globulin Ratio 0.95 Current Medications Medications Dose Sig/Linda Start Time Status Last (Trade) Ordered Route PRN Stop Time Admin Dose Reason Admin Magnesium 50 ml @ 25 ONCE ONCE 06/19/19 DC 06/19/19 Sulfate mls/hr IVPB 13:00 12:57 06/19/19 14:59 Sodium 100 ml @ ud STK-MED 06/19/19 DC Chloride ONCE .ROUTE 13:23 06/19/19 13:24 Iodixanol 100 ml STK-MED 06/19/19 DC (Visipaque ONCE .ROUTE 13:23 Locm) 06/19/19 13:24 Furosemide 20 mg ONCE ONCE 06/19/19 DC 06/19/19 (Lasix) IV 14:00 14:10 06/19/19 14:01 Albuterol 2.5 mg Q3H RESP 06/19/19 (Proventil THERAPY PRN 15:00 0.083% (Neb)) NEB WHEEZING AND SOB Alprazolam 0.5 mg Q8H PRN 06/19/19 (Xanax) PO ANXIETY 15:00 50 mg Q6H PRN 06/19/19 Diphenhydrami PO ITCHING 15:00 ne HCl (Benadryl) Zolpidem 10 mg QHS PRN 06/19/19 Tartrate PO INSOMNIA 15:00 (Ambien) IV Flush 3 ml PER 06/19/19 (NS 3 ml) PROTOCOL IV 15:00 Ondansetron 4 mg Q6H PRN 06/19/19 HCl (Zofran IV 15:00 Inj) NAUSEA/VOMITI NG 650 mg Q6H PRN 06/19/19 Acetaminophen PO .PAIN 1-3 15:00 (Tylenol OR TEMP Tab) Docusate 100 mg Q12H PRN 06/19/19 Sodium PO 15:00 (Colace) .CONSTIPATION Magnesium 30 ml DAILY PRN 06/19/19 Hydroxide PO 15:00 (Milk Of Mag) .CONSTIPATION Magnesium 50 ml @ 25 ONCE ONCE 06/19/19 DC 06/19/19 Sulfate mls/hr IVPB 15:00 18:05 06/19/19 16:59 Potassium 40 meq ONCE STAT 06/19/19 DC 06/19/19 Chloride PO 14:47 18:05 (Klor-Con 20) 06/19/19 15:08 Discontinue ONCE ONCE 06/19/19 DC Miscellaneous current oral XX 15:00 sulfonylur... 06/19/19 15:13 Information (* Miscellaneous Pharmacy Order) ONCE ONCE 06/19/19 DC Miscellaneous HYPOGLYCEMIA XX 15:00 PROTOCOL 06/19/19 15:13 Information w... (* Miscellaneous Pharmacy Order) Discontinue ONCE ONCE 06/19/19 DC Miscellaneous all previ... XX 15:00 06/19/19 15:13 Information (* Miscellaneous Pharmacy Order) 1 ea NOTE XX 06/19/19 Miscellaneous 15:30 Information Glucose 15 gm Q15M PRN 06/19/19 (Glutose) PO DECREASED 15:30 GLUCOSE Glucose 22.5 gm Q15M PRN 06/19/19 (Glutose) PO DECREASED 15:30 GLUCOSE Dextrose 25 ml Q15M PRN 06/19/19 (D50w IV DECREASED 15:30 Syringe) GLUCOSE Dextrose 50 ml Q15M PRN 06/19/19 (D50w IV DECREASED 15:30 Syringe) GLUCOSE Glucagon 1 mg Q15M PRN 06/19/19 (Glucagen) IM DECREASED 15:30 GLUCOSE Glucose 15 gm Q15M PRN 06/19/19 (Glutose) BUCCAL 15:30 DECREASED GLUCOSE Procedures/[place] [address] Radiology Main Line: [phone] DIAGNOSTIC IMAGING REPORT Patient: LIZABETH QUINTANILLA : 1960 Age: 58 Sex: F MR #: [id number] DOS: 06/19/19 1316 Ordering MD: KISHAN DUKES MD Location: E/R Room/Bed: PROCEDURE: US Abdomen. CLINICAL INDICATION: abdominal pain TECHNIQUE: Multiple real-time images were acquired of the patient's right upper quadrant abdomen and retroperitoneum utilizing a high resolution transducer. COMPARISON: None FINDINGS: The liver demonstrates normal echogenicity. The liver is enlarged in size and no focal solid lesions are seen. The liver measures 19.8 cm in length. The portal vein is patent with normal direction of flow. No intrahepatic biliary dilatation is seen. The hepatic veins are dilated. No gallstones are identified within the gallbladder. There is no pericholecystic fluid or gallbladder wall thickening. The common bile duct measures 4.5 mm in maximal dimension. The visualized portions of the pancreas are unremarkable. The tail of the pancreas is not seen. No free fluid is identified. The right kidney is normal in size, and demonstrate normal echogenicity and cortical thickness. The right kidney measures 10.9 cm in long dimension. There is no evidence of hydronephrosis. There are no kidney stones. RPTAT: AA IMPRESSION: Mild hepatomegaly. No evidence of gallstones. .Gregor Rogers MD, MD Date Time Electronically viewed and signed by .Gregor Rogers MD, MD on 06/19/2019 14:33 .S/ CC: KISHAN DUKES MD [phone] [place] [address] Radiology Main Line: [phone] DIAGNOSTIC IMAGING REPORT Patient: LIZABETH QUINTANILLA : 1960 Age: 58 Sex: F MR #: [id number] DOS: 06/19/19 1138 Ordering MD: KISHAN DUKES MD Location: E/R Room/Bed: PROCEDURE: XR Chest. CLINICAL INDICATION: Chest pain TECHNIQUE: Single portable view of the chest was obtained COMPARISON: 01/27/17 FINDINGS: The heart is enlarged. The lungs are clear. There is no pleural effusion or pneumothorax. RPTAT: AA IMPRESSION: Mild Cardiomegaly. .Gregor Rogers MD, MD Date Time Electronically viewed and signed by .Gregor Rogers MD, MD on 06/19/2019 12:24 .S/ CC: KISHAN DUKES MD [phone] [place] [address] Radiology Main Line: [phone] DIAGNOSTIC IMAGING REPORT Patient: LIZABETH QUINTANILLA : 1960 Age: 58 Sex: F MR #: [id number] DOS: 06/19/19 1138 Ordering MD: KISHAN DUKES MD Location: E/R Room/Bed: PROCEDURE: US Lower extremity Venous. CLINICAL INDICATION: Bilateral lower extremity edema TECHNIQUE: Multiple sonographic images of the bilateral lower extremity deep venous system was obtained utilizing grayscale, color-flow, compressive sonography and doppler imaging with augmentation. The images were reviewed on a PACS workstation. COMPARISON: None. FINDINGS: There is normal compressibility and flow within the right common femoral, femoral , posterior tibial and popliteal veins. There is normal compressibility and flow within the left common femoral, femoral , posterior tibial and popliteal veins. RPTAT: AA IMPRESSION: No sonographic evidence for deep venous thrombosis. .Gregor Rogers MD, MD Date Time Electronically viewed and signed by .Gregor Rogers MD, MD on 06/19/2019 12:24 .S/ CC: KISHAN DUKES MD [phone] [place] [address] Radiology Main Line: [phone] DIAGNOSTIC IMAGING REPORT Patient: LIZABETH QUINTANILLA : 1960 Age: 58 Sex: F MR #: [id number] [facility] #: [id number] DOS: 06/19/19 0000 Ordering MD: KISHAN DUKES MD Location: E/R Room/Bed: PROCEDURE: CT Pulmonary Angiogram. CLINICAL INDICATION: Chest pain and shortness of breath. TECHNIQUE: CT pulmonary angiogram and a CT scan of the chest with contrast was performed. The patient was scanned following the uncomplicated intravenous administration of 100 ml of Omnipaque-350 intravenous contrast. 2-D coronal reformatted images were obtained from the axial source images. In addition, 3-D post processing was performed. Total exam DLP is 643 mGy-cm. CTDIvol is 28 mGy. One or more of the following dose reduction techniques were used: Automated exposure control, adjustment of the mA and/or kV according to patient size, use of iterative reconstruction technique. DICOM images are available. COMPARISON: None available. FINDINGS: No filling defect or lack of enhancement to suggest pulmonary artery embolism. There are incompletely visualized bilateral breast prosthesis in place. There is dilatation of the main pulmonary artery measuring 3.6 cm. There are multiple bilateral upper lobe cysts, scarring, and fibrosis, and to a lesser extent in the bilateral lower lobes.. There is emphysema. There is no pulmonary nodule or mass lesion. There is no pneumothorax. There is mediastinal lymphadenopathy. An index pretracheal lymph node measures 1.2 cm. There is no pleural effusion. There is no pericardial effusion. The thoracic aorta is normal with no aneurysm or dissection. Images through the upper abdomen demonstrate postsurgical changes and noreen in the left upper quadrant. The osseous structures are normal with no fracture or lytic lesion. IMPRESSION: 1. No evidence of pulmonary artery embolism. 2. There are incompletely visualized bilateral breast prosthesis in place. There is dilatation of the main pulmonary artery measuring 3.6 cm. This is compatible with pulmonary hypertension. 3. There are multiple bilateral upper lobe cysts, scarring, and fibrosis, and to a lesser extent in the bilateral lower lobes.. There is emphysema. 4. Postsurgical changes and noreen in the left upper quadrant. 5. Mediastinal lymphadenopathy. RPTAT: QQ Physician Carly Date Time Electronically viewed and signed by Patrick Stewart Physician on 06/19/2019 14:21 RD/ CC: KISHAN DUKES MD [phone] EKG: Read by emergency physician Rate/Rhythm: Sinus tachycardia 104 beats/min QRS, ST, T-waves: No ST elevation, no T inversion, RWA Impression: Abnormal EKG MEDICAL MAKING DECISION: The patient is a 58-year-old female, presenting with acute CHF exacerbation, acute hypomagnesemia, abnormal LFT She was treated with magnesium 2 g IV for acute hypomagnesemia, Lasix 20 mg IV for acute CHF exacerbation with good response The differential diagnoses considered include but are not limited to asthma, COPD, pneumonia, pulmonary embolus, pleural effusion, congestive heart failure. Departure Diagnosis: Primary Impression: CHF (congestive heart failure) Additional Impressions: Hypomagnesemia Abnormal LFTs Anemia Condition: Stable Comments I discussed the findings with the patient. I notified the patient with Dr. Vines at 2 PM via [facility] [employer] , who was made aware of the lab, the treatment, the patient condition. The patient is admitted to [facility] Disclaimer: Inadvertent spelling and grammatical errors are likely due to EHR/dictation software use and do not reflect on the overall quality of patient care. Also, please note that the electronic time recorded on this note does not necessarily reflect the actual time of the patient encounter. KISHAN DUKES MD Jun 19, 2019 11:30
[2019-06-19] MEDS ORDERED: MAGNESIUM SULFATE 2 GM/50 ML 50 ML IVPB ONE ×2 (13:00→15:00)
[2019-06-19] MEDS ORDERED: IODIXANOL LOCM 100 ML BTL ONE (13:23)
[2019-06-19] MEDS ORDERED: SOD CHLORIDE 0.9% 100 ML ONE (13:23)
[2019-06-19] MEDS ORDERED: FUROSEMIDE 20 MG INJ IV ONE (14:00)
[2019-06-19] MEDS ORDERED: POTASSIUM CHLORIDE (SR) 20 MEQ TAB PO STA (14:47)
[2019-06-19] MEDS ORDERED: ALBUTEROL 0.083% (NEB) 2.5 MG/3 ML AMP NEB PRN (15:00)
[2019-06-19] MEDS ORDERED: DOCUSATE SODIUM 100 MG CAP PO PRN (15:00)
[2019-06-19] MEDS ORDERED: NACL 0.9% 3 ML SYG IV SCH (15:00)
[2019-06-19] MEDS ORDERED: DIPHENHYDRAMINE 50 MG CAP PO PRN (15:00)
[2019-06-19] MEDS ORDERED: ONDANSETRON 4 MG INJ IV PRN (15:00)
[2019-06-19] MEDS ORDERED: ACETAMINOPHEN 325 MG TAB PO PRN (15:00)
[2019-06-19] MEDS ORDERED: MAGNESIUM HYDROXIDE 30ML CUP PO PRN (15:00)
[2019-06-19] MEDS ORDERED: DEXTROSE 50% 50 ML SYRINGE IV PRN ×2 (15:30)
[2019-06-19] MEDS ORDERED: GLUCOSE GEL 15 GRAM TUBE BUCCAL PRN (15:30)
[2019-06-19] MEDS ORDERED: GLUCOSE GEL 15 GRAM TUBE PO PRN ×2 (15:30)
[2019-06-19] MEDS ORDERED: GLUCAGON 1 MG INJ IM PRN (15:30)
--- NOTE | 2019-06-19 16:22 | CONDCODE ---
Medicare Criteria-> INP to OBS Patient still in hospital: Yes SI/IS Criteria met: Yes Attending MD agrees w/change: Yes Order entered in Pt. record: Yes Pt. does not meet Inp Criteria: Yes Medicare Inp->Obs Criteria met: Yes UR Phys Advisor eSign required: Yes I personally scribed for KISHAN DUKES MD ([facility]) on 06/19/19 at 16:22. Electronically submitted by Chel Jennings ([email or web address]). KISHAN DUKES MD Jun 19, 2019 16:22
[2019-06-19 17:00] VITALS: Ht 160 cm; Wt 78.6 kg
--- NOTE | 2019-06-19 17:09 | RADRPT ---
Echocardiogram Report Patient Name: LIZABETH QUINTANILLAPatient ID: [id number] : 1960 (58y 8m)Study Date: 06/19/2019 3:24:56 PM Gender: FAccession #: [id number] Tech: Mehrdad White [facility] Location: -6 Ref.Physician: MARY KATE NORRIS Height(Cm): BSA: Weight(Kg): Quality: AdequateOrder Physician: MARY KATE NORRIS Account #: Procedures: Echocardiographic Report: Transthoracic echocardiogram with complete 2D, M-Mode, and doppler examination. Indications: Pulmonary Hypertension. Measurements: 2D/M Mode Doppler Measurement Value Normal Range Measurement Value Normal Range LVIDd 2D 3.5 [ 3.8 - 5.2 ] cm AV Peak Corey 1.1 [ 100.0 - 170.0 ] cm/sec LVIDs 2D 2.6 [ 2.2 - 3.5 ] cm AV Peak PG 5.0 [ 2.0 - 9.0 ] mmHg LVPWd 2D 1.3 [ 0.6 - 0.9 ] cm LVOT Peak Corey 0.8 [ 70.0 - 110.0 ] cm/sec IVSd 2D 1.3 [ 0.6 - 0.9 ] cm LVOT Peak PG 3.0 [ 2.0 - 6.0 ] mmHg AoR Diam 2D 2.5 [ 2.3 - 3.1 ] cm MV E Peak Corey 0.4 [ 60.0 - 130.0 ] cm/sec EDV 2D 49.5 [ 46.0 - 106.0 ] ml MV A Peak Corey 0.6 [ 100.0 - 120.0 ] cm/sec ESV 2D 24.4 [ 14.0 - 42.0 ] ml MV E/A 0.7 [ 0.8 - 1.5 ] ratio EF 2D 50.7 [ 54.0 - 74.0 ] percent MV Decel Time 155 [ 104 - 258 ] msec LA Dimen 2D 3.3 [ 2.7 - 3.8 ] cm Lat E` Corey 0.1 [ 10.0 - 15.0 ] cm/sec Lateral E/E` 3.4 [ 1.0 - 2.0 ] ratio Med E` Corey 0.1 cm/sec MV E/A 0.7 [ 0.8 - 1.5 ] ratio TR Peak Corey 5.1 [ 100.0 - 280.0 ] cm/sec TR Peak PG 105.0 mmHg RVSP 115.0 [ 10.0 - 36.0 ] mmHg Findings: Left Ventricle: Normal left ventricular cavity size. Mild concentric left ventricular hypertrophy. Paradoxical septal motion consistent with IVCD or bundle branch block. Ejection fraction is visually estimated at 60 %. Abnormal Diastolic Function. Right Ventricle: Moderate right ventricular systolic dysfunction. Severe enlargement of right ventricle. Abnormal (paradoxical) septal motion. Flattened septum in systole and diastole consistent with increased RV pressure and volume overload. Left Atrium: The left atrium is normal in size. Right Atrium: There is severe enlargement of right atrium. Mitral Valve: Mild mitral leaflet calcification. Mild mitral annular calcification. Trace mitral regurgitation. Aortic Valve: No significant aortic stenosis or insufficiency. Aortic cusps appear mildly calcified. Tricuspid Valve: The estimated Peak RVSP is 115 mmHg. Tricuspid valve appears mildly thickened. There is severe tricuspid regurgitation. Pericardium: Trivial pericardial effusion. Left pleural effusion seen. Aorta: Normal aortic root. IVC: Dilated IVC without respiratory collapse consistent with elevated right atrial pressure. Conclusions: There is severe enlargement of right atrium. Moderate right ventricular systolic dysfunction. Severe enlargement of right ventricle. Abnormal (paradoxical) septal motion. Flattened septum in systole and diastole consistent with increased RV pressure and volume overload. Normal left ventricular cavity size. Mild concentric left ventricular hypertrophy. Paradoxical septal motion consistent with IVCD or bundle branch block. Ejection fraction is visually estimated at 60 %. Abnormal Diastolic Function. Mild mitral leaflet calcification. Mild mitral annular calcification. Trace mitral regurgitation. No significant aortic stenosis or insufficiency. Aortic cusps appear mildly calcified. severe pulmonary HTN: The estimated Peak RVSP is 115 mmHg. Tricuspid valve appears mildly thickened. There is severe tricuspid regurgitation. n. Dilated IVC without respiratory collapse consistent with elevated right atrial pressure. Electronically Signed By: Mary Kate Norris 2019-06-19 17:08:23 PDT
--- NOTE | 2019-06-19 18:04 | CONS ---
Assessment/Plan Assessment/Plan Hospital Course (Demo Recall) 1. Severe pulmonary hypertension 2. Sarcoid lung disease 3. Right-sided heart failure secondary to above 4. History of diabetes 5. Sarcoidosis 6. Transaminitis [place] secondary to congestion vs others 7. Depression 8. History of thyroid disorder Recommendations: Diuretics as needed Pulmonary consultation. Consider history of ischial or other pulmonary hypertension medication. Patient to bring exact list of medication to see what she has been taking at home but has been prescribed by her assistant operations manager at [facility] DVT prophylaxis check thyroid function test Oxygen supplement Thank you for his referral. We will continue to follow along with you MARY KATE NORRIS MD [facility] Consultation Date/Type/Reason Admit Date/Time Jun 19, 2019 at 16:21 Date of Consultation: Jun 19, 2019 Type of Consult Cardiology Reason for Consultation r/o CHF Requesting Provider: GABRIEL WEST MD Date/Time of Note DATE: 06/19/19 TIME: 17:56 Hx of Present Illness Interventional cardiology consultation note Chief complaint: Weakness lower extremity edema shortness of breath Reason for consult: Rule out CHF History of present illness: Thank you for this referral. History was obtained from the patient who is a poor historian for excessive view of the old chart discussion physician staff This is an unfortunate 58-year-old -[place] female with history of pulmonary hypertension at least over the past 10 years that I could obtain from the old records, sarcoidosis and pulmonary disease who came to emergency room with complaint. Patient states that she has been increasingly weak short of breath and has had lower extremity edema over the past few days. No chest pain or pressure no palpitation. I was kindly asked to evaluate rule out congestive heart failure. Patient said that she is being followed by [facility] for pulmonary pressures been placed on pulmonary hypertension medication although I do not see them in the last Allergies: No known drug allergies Medications were reviewed as per medical reconciliation sheet Family history: Mother reportedly had heart attack at age 40s although it is not clear that she has lived into her 70s Social history: Does not smoke or drink PAST MEDICAL HISTORY: Hypothyroidism, status post splenectomy, diabetes mellitus. History of pulmonary hypertension review of the old chart shows that her PA pressure 10 years ago based on the echo done in our hospital was in the 80s Review of system: Patient denies all others except for above-mentioned Past Medical History Home Meds Reported Medications Zolpidem Tartrate* (Zolpidem Tartrate*) 10 Mg Tablet, 10 MG PO QHS PRN for INSOMNIA, #30 TAB 07/13/18 Pantoprazole* (Pantoprazole*) 40 Mg Tablet.dr, 40 MG PO AC BREAKFAST, TAB 07/13/18 Multivitamin with Minerals (Multivitamins with Minerals) 1 Each Tablet, 1 EACH PO DAILY, TAB 07/13/18 Metformin Hcl* (Metformin Hcl*) 500 Mg Tablet, 250 MG PO WITH BREAKFAST DINNE, #60 TAB 07/13/18 Losartan Potassium* (Losartan Potassium*) 25 Mg Tablet, 25 MG PO DAILY, TAB 07/13/18 Hydroxyzine Hcl* (Hydroxyzine Hcl*) 50 Mg Tablet, 50 MG PO QHS PRN for ITCHING, #30 TAB 07/13/18 Gabapentin* (Gabapentin*) 100 Mg Capsule, 100 MG PO NEEDED, #90 CAP TAKE 1 TO 3 CAP PRN 07/13/18 Escitalopram Oxalate* (Escitalopram Oxalate*) 20 Mg Tablet, 20 MG PO DAILY, #30 TAB 07/13/18 Diphenhydramine Hcl* (Benadryl*) 50 Mg Cap, 50 MG PO NEEDED PRN for ITCHING, CAP 07/13/18 Alprazolam* (Alprazolam*) 0.5 Mg Tablet, 0.5 MG PO Q8H PRN for ANXIETY, TAB 07/13/18 Albuterol Sulfate (Proair Respiclick) 90 Mcg Aer.pow.ba, 1 PUFF INHALATION Q4 PRN for WHEEZING AND SOB, #1 BOTTLE 07/13/18 Albuterol Sulfate* (Albuterol Sulfate* Neb) 0.083%-3 Ml Neb, 2.5 MG NEB Q3H PRN for WHEEZING AND SOB, #30 VIAL 07/13/18 Discontinued Reported Medications Tadalafil (Cialis) 20 Mg Tablet, 20 MG PO DAILY, TAB 07/13/18 Ibuprofen* (Ibuprofen*) 400 Mg Tablet, 400 MG PO Q8H PRN for PAIN, TAB 07/13/18 Discontinued Scripts Levofloxacin* (Levaquin*) 500 Mg Tablet, 500 MG PO DAILY for 5 Days, TAB Prov:SONDRA AGUERO 07/14/18 Sulfamethoxazole/Trimethoprim (Sulfamethoxazole-Tmp Ds Tablet) 1 Each Tablet, 1 TAB PO BID for 5 Days, TAB Prov:SONDRA AGUERO 07/14/18 Mupirocin* (Bactroban*) 2% -22 Gram Oint...g., 1 APPLIC TOP TID, #1 TUB Prov:SONDRA AGUERO 07/14/18 Medications Current Medications Albuterol (Proventil 0.083% (Neb)) 2.5 mg Q3H RESP THERAPY PRN NEB WHEEZING AND SOB; Start 06/19/19 at 15:00 Alprazolam (Xanax) 0.5 mg Q8H PRN PO ANXIETY; Start 06/19/19 at 15:00 Diphenhydramine HCl (Benadryl) 50 mg Q6H PRN PO ITCHING; Start 06/19/19 at 15:00 Escitalopram Oxalate (Lexapro) 20 mg DAILY PO ; Start 06/20/19 at 09:00 Pantoprazole (Protonix Tab) 40 mg AC BREAKFAST PO ; Start 06/20/19 at 07:00 Zolpidem Tartrate (Ambien) 10 mg QHS PRN PO INSOMNIA; Start 06/19/19 at 15:00 Miscellaneous Information 20 mg DAILY PO ; Start 06/20/19 at 09:00; Status UNV IV Flush (NS 3 ml) 3 ml PER PROTOCOL IV ; Start 06/19/19 at 15:00 Ondansetron HCl (Zofran Inj) 4 mg Q6H PRN IV NAUSEA/VOMITING; Start 06/19/19 at 15:00 Acetaminophen (Tylenol Tab) 650 mg Q6H PRN PO .PAIN 1-3 OR TEMP; Start 06/19/19 at 15:00 Docusate Sodium (Colace) 100 mg Q12H PRN PO .CONSTIPATION; Start 06/19/19 at 15:00 Magnesium Hydroxide (Milk Of Mag) 30 ml DAILY PRN PO .CONSTIPATION; Start 06/19 at 15:00 Enoxaparin Sodium (Lovenox) 30 mg DAILY SC ; Start 06/20/19 at 09:00 Insulin Aspart (Novolog Insulin Pen) NOVOLOG *MILD* ALGORITHM WITH MEALS BEDTIME SC ; Start 06/19/19 at 18:00 Miscellaneous Information 1 ea NOTE XX ; Start 06/19/19 at 15:30 Glucose (Glutose) 15 gm Q15M PRN PO DECREASED GLUCOSE; Start 06/19/19 at 15:30 Glucose (Glutose) 22.5 gm Q15M PRN PO DECREASED GLUCOSE; Start 06/19/19 at 15:30 Dextrose (D50w Syringe) 25 ml Q15M PRN IV DECREASED GLUCOSE; Start 06/19/19 at 15:30 Dextrose (D50w Syringe) 50 ml Q15M PRN IV DECREASED GLUCOSE; Start 06/19/19 at 15:30 Glucagon (Glucagen) 1 mg Q15M PRN IM DECREASED GLUCOSE; Start 06/19/19 at 15:30 Glucose (Glutose) 15 gm Q15M PRN BUCCAL DECREASED GLUCOSE; Start 06/19/19 at 15:30 Allergies: Coded Allergies: No Known Drug Allergy (Verified Allergy, Unknown, 07/13/18) Social History Smoking Status: Never smoker Exam/Review of Systems Vital Signs Vitals Vital Signs Date Temp Pulse Resp B/P (MAP) Pulse Ox O2 O2 Flow FiO2 Time Delivery Rate 06/19/19 97.5 101 20 103/65 98 Nasal 2.0 16:44 (78) Cannula Exam Exam General: no acute distress HEENT: NC/AT. pupils are equal. round. NECK: . no stridor. CV: RRR. systolic murmur; no gallop or rubs. PULM: no wheezing or rhonchi. GI: SOFT, NT, ND, no rebound or guarding Extremity: trace B/L LE edema. no clubbing. neuro: awake and alert, OX3. Psych: Labile and depressed mood with crying spells rectal: deferred EKG was personally reviewed showed normal sinus rhythm. No specific ST abnormality. Left atrial enlargement right atrial enlargement Chest x-ray done in the emergency room shows: Mild cardiomegaly CT pulmonary angiogram done in the emergency room shows: 1. No evidence of pulmonary artery embolism. 2. There are incompletely visualized bilateral breast prosthesis in place. There is dilatation of the main pulmonary artery measuring 3.6 cm. This is compatible with pulmonary hypertension. 3. There are multiple bilateral upper lobe cysts, scarring, and fibrosis, and to a lesser extent in the bilateral lower lobes.. There is emphysema. 4. Postsurgical changes and noreen in the left upper quadrant. 5. Mediastinal lymphadenopathy Labs Result Diagram: 06/19/19 1148 06/19/19 1148 Results 24hrs Laboratory Tests Test 06/19/19 11:48 White Blood Count 6.2 Red Blood Count 4.39 Hemoglobin 10.8 L Hematocrit 35.3 L Mean Corpuscular Volume 80.4 L Mean Corpuscular Hemoglobin 24.6 L Mean Corpuscular Hemoglobin Concent 30.6 L Red Cell Distribution Width 24.9 #H Platelet Count 163 # Mean Platelet Volume Immature Granulocytes % 0.600 H Neutrophils % 50.5 Lymphocytes % 31.3 Monocytes % 15.7 H Eosinophils % 0.8 Basophils % 1.1 Nucleated Red Blood Cells % 1.9 H Immature Granulocytes # 0.040 H Neutrophils # 3.1 Lymphocytes # 1.9 Monocytes # 1.0 H Eosinophils # 0.1 Basophils # 0.1 Nucleated Red Blood Cells # 0.1 H Prothrombin Time 15.3 #H Prothrombin Time Ratio 1.2 INR International Normalized Ratio 1.20 Activated Partial Thromboplast Time 31.5 D-Dimer 3367.84 #H D-Dimer Comment Sodium Level 137 Potassium Level 3.6 Chloride Level 89 L Carbon Dioxide Level 36 H Anion Gap 12 Blood Urea Nitrogen 11 Creatinine 1.13 H Est Glomerular Filtrat Rate mL/min > 60 Glucose Level 136 Hemoglobin A1c 6.7 H Calcium Level 9.2 Magnesium Level 0.8 *L Total Bilirubin 2.2 H Direct Bilirubin 0.60 H Indirect Bilirubin 1.6 H Aspartate Amino Transf (AST/SGOT) 267 H Alanine Aminotransferase (ALT/SGPT) 288 H Alkaline Phosphatase 589 H Troponin I 0.033 B-Type Natriuretic Peptide 3070 H Total Protein 8.0 Albumin 3.9 Globulin 4.10 H Albumin/Globulin Ratio 0.95 Medications Medications Current Medications Albuterol (Proventil 0.083% (Neb)) 2.5 mg Q3H RESP THERAPY PRN NEB WHEEZING AND SOB; Start 06/19/19 at 15:00 Alprazolam (Xanax) 0.5 mg Q8H PRN PO ANXIETY; Start 06/19/19 at 15:00 Diphenhydramine HCl (Benadryl) 50 mg Q6H PRN PO ITCHING; Start 06/19/19 at 15:00 Escitalopram Oxalate (Lexapro) 20 mg DAILY PO ; Start 06/20/19 at 09:00 Pantoprazole (Protonix Tab) 40 mg AC BREAKFAST PO ; Start 06/20/19 at 07:00 Zolpidem Tartrate (Ambien) 10 mg QHS PRN PO INSOMNIA; Start 06/19/19 at 15:00 Miscellaneous Information 20 mg DAILY PO ; Start 06/20/19 at 09:00; Status UNV IV Flush (NS 3 ml) 3 ml PER PROTOCOL IV ; Start 06/19/19 at 15:00 Ondansetron HCl (Zofran Inj) 4 mg Q6H PRN IV NAUSEA/VOMITING; Start 06/19/19 at 15:00 Acetaminophen (Tylenol Tab) 650 mg Q6H PRN PO .PAIN 1-3 OR TEMP; Start 06/19/19 at 15:00 Docusate Sodium (Colace) 100 mg Q12H PRN PO .CONSTIPATION; Start 06/19/19 at 15:00 Magnesium Hydroxide (Milk Of Mag) 30 ml DAILY PRN PO .CONSTIPATION; Start 06/19/19 at 15:00 Enoxaparin Sodium (Lovenox) 30 mg DAILY SC ; Start 06/20/19 at 09:00 Insulin Aspart (Novolog Insulin Pen) NOVOLOG *MILD* ALGORITHM WITH MEALS BEDTIME SC ; Start 06/19/19 at 18:00 Miscellaneous Information 1 ea NOTE XX ; Start 06/19/19 at 15:30 Glucose (Glutose) 15 gm Q15M PRN PO DECREASED GLUCOSE; Start 06/19/19 at 15:30 Glucose (Glutose) 22.5 gm Q15M PRN PO DECREASED GLUCOSE; Start 06/19/19 at 15:30 Dextrose (D50w Syringe) 25 ml Q15M PRN IV DECREASED GLUCOSE; Start 06/19/19 at 15:30 Dextrose (D50w Syringe) 50 ml Q15M PRN IV DECREASED GLUCOSE; Start 06/19/19 at 15:30 Glucagon (Glucagen) 1 mg Q15M PRN IM DECREASED GLUCOSE; Start 06/19/19 at 15:30 Glucose (Glutose) 15 gm Q15M PRN BUCCAL DECREASED GLUCOSE; Start 06/19/19 at 15:30 MARY KATE NORRIS MD Jun 19, 2019 18:04
--- NOTE | 2019-06-19 18:21 | HP ---
Date/Time of Note Date/Time of Note DATE: 06/19/19 TIME: 18:09 Assessment/Plan VTE Prophylaxis SCD applied (from Nsg): Yes Pharmacological prophylaxis: LMWH Lines/Catheters IV Catheter Type (from Nrsg): Saline Lock Assessment/Plan Assessment/Plan 1. Acute hypoxic respiratory failure - most likely secondary to right sided heart failure and pulmonary HTN - O2 as needed - Pulmonology consultation placed for further recommendations 2. Right sided heart failure - Cardiology on board and appreciate recommendations - BNP elevated - Diuretics on board - ECHO ordered - will check TSH 3. Transaminitis - most likely secondary to congestion - US noted with no acute issues 4. DEANNA - most likely ATN - renal function nl in 2018. Will avoid nephrotoxic agents and monitor renal function - if no improvement, will consult nephrology 5. hypoMag - replacing - continue monitoring 6. Elevated d-dimer - CTA negative for PE 7. Diet - cardiac - requesting dietary consult 8. Disposition - Admit for workup and treatment of acute shortness of breath. Cardiology and Pulmonology consultations placed Result Diagram: 06/19/19 1148 06/19/19 1148 Results 24hrs Laboratory Tests Test 06/19/19 11:48 White Blood Count 6.2 Red Blood Count 4.39 Hemoglobin 10.8 L Hematocrit 35.3 L Mean Corpuscular Volume 80.4 L Mean Corpuscular Hemoglobin 24.6 L Mean Corpuscular Hemoglobin Concent 30.6 L Red Cell Distribution Width 24.9 #H Platelet Count 163 # Mean Platelet Volume Immature Granulocytes % 0.600 H Neutrophils % 50.5 Lymphocytes % 31.3 Monocytes % 15.7 H Eosinophils % 0.8 Basophils % 1.1 Nucleated Red Blood Cells % 1.9 H Immature Granulocytes # 0.040 H Neutrophils # 3.1 Lymphocytes # 1.9 Monocytes # 1.0 H Eosinophils # 0.1 Basophils # 0.1 Nucleated Red Blood Cells # 0.1 H Prothrombin Time 15.3 #H Prothrombin Time Ratio 1.2 INR International Normalized Ratio 1.20 Activated Partial Thromboplast Time 31.5 D-Dimer 3367.84 #H D-Dimer Comment Sodium Level 137 Potassium Level 3.6 Chloride Level 89 L Carbon Dioxide Level 36 H Anion Gap 12 Blood Urea Nitrogen 11 Creatinine 1.13 H Est Glomerular Filtrat Rate mL/min > 60 Glucose Level 136 Hemoglobin A1c 6.7 H Calcium Level 9.2 Magnesium Level 0.8 *L Total Bilirubin 2.2 H Direct Bilirubin 0.60 H Indirect Bilirubin 1.6 H Aspartate Amino Transf (AST/SGOT) 267 H Alanine Aminotransferase (ALT/SGPT) 288 H Alkaline Phosphatase 589 H Troponin I 0.033 B-Type Natriuretic Peptide 3070 H Total Protein 8.0 Albumin 3.9 Globulin 4.10 H Albumin/Globulin Ratio 0.95 HPI/ROS Admit Date/Time Admit Date/Time Jun 19, 2019 at 16:21 Hx of Present Illness 58 yo F with PMH severe pulmonary HTN, DM, Sarcoidosis, asthma, and HLD presented to ED with worsening shortness of breath and lower extremity swelling over the last 2 days. Patient states she has been experiencing lower extremity swelling and was being worked up by her PCP who unfortunately and was unable to follow up with the results. Patient states shes been more dyspneic on exertion and unable to move around given shortness of breath. She has been more home bound lately due to her respiratory issues. She [facility] with [facility]. Patient denies any fevers, chills, cough, recent sick contact. She is unsure if she has any cardiac issues besides hypertension. Patient has been concerned about a possible blood clot as well given immobility. ROS All 12 systems reviewed and pertinent positives as per HPI. All others negative. Constitutional: No fatigue, No nausea Eyes: No discharge ENT: No congestion Respiratory: shortness of breath; No cough, No sputum, No wheezing Cardiovascular: No chest pain, No lightheadedness, No palpitations Gastrointestinal: No pain, No constipation, No diarrhea, No nausea, No vomiting Genitourinary: no complaints Musculoskeletal: no complaints Skin: No laceration, No rash Neurologic: No confusion, No focal-weakness, No syncope Endocrine: no complaints Lymphatic: no complaints Psychological: depression Immunologic: no complaints PMH/Family/Social Past Medical History Medical History: diabetes, hypertension, other (sarcoidosis, pulmonary HTN) Medications Current Medications Albuterol (Proventil 0.083% (Neb)) 2.5 mg Q3H RESP THERAPY PRN NEB WHEEZING AND SOB; Start 06/19/19 at 15:00 Alprazolam (Xanax) 0.5 mg Q8H PRN PO ANXIETY; Start 06/19/19 at 15:00 Diphenhydramine HCl (Benadryl) 50 mg Q6H PRN PO ITCHING; Start 06/19/19 at 15:00 Escitalopram Oxalate (Lexapro) 20 mg DAILY PO ; Start 06/20/19 at 09:00 Pantoprazole (Protonix Tab) 40 mg AC BREAKFAST PO ; Start 06/20/19 at 07:00 Zolpidem Tartrate (Ambien) 10 mg QHS PRN PO INSOMNIA; Start 06/19/19 at 15:00 Miscellaneous Information 20 mg DAILY PO ; Start 06/20/19 at 09:00; Status UNV IV Flush (NS 3 ml) 3 ml PER PROTOCOL IV ; Start 06/19/19 at 15:00 Ondansetron HCl (Zofran Inj) 4 mg Q6H PRN IV NAUSEA/VOMITING; Start 06/19/19 at 15:00 Acetaminophen (Tylenol Tab) 650 mg Q6H PRN PO .PAIN 1-3 OR TEMP; Start 06/19/19 at 15:00 Docusate Sodium (Colace) 100 mg Q12H PRN PO .CONSTIPATION; Start 06/19/19 at 15:00 Magnesium Hydroxide (Milk Of Mag) 30 ml DAILY PRN PO .CONSTIPATION; Start 06/19/19 at 15:00 Enoxaparin Sodium (Lovenox) 30 mg DAILY SC ; Start 06/20/19 at 09:00 Insulin Aspart (Novolog Insulin Pen) NOVOLOG *MILD* ALGORITHM WITH MEALS BEDTIME SC ; Start 06/19/19 at 18:00 Miscellaneous Information 1 ea NOTE XX ; Start 06/19/19 at 15:30 Glucose (Glutose) 15 gm Q15M PRN PO DECREASED GLUCOSE; Start 06/19/19 at 15:30 Glucose (Glutose) 22.5 gm Q15M PRN PO DECREASED GLUCOSE; Start 06/19/19 at 15:30 Dextrose (D50w Syringe) 25 ml Q15M PRN IV DECREASED GLUCOSE; Start 06/19/19 at 15:30 Dextrose (D50w Syringe) 50 ml Q15M PRN IV DECREASED GLUCOSE; Start 06/19/19 at 15:30 Glucagon (Glucagen) 1 mg Q15M PRN IM DECREASED GLUCOSE; Start 06/19/19 at 15:30 Glucose (Glutose) 15 gm Q15M PRN BUCCAL DECREASED GLUCOSE; Start 06/19/19 at 15:30 Coded Allergies: No Known Drug Allergy (Verified Allergy, Unknown, 07/13/18) Past Surgical History Past Surgical Hx: other (breast implants, tummy tuck, hernia repair, splenectomy) Family History Significant Family History: heart disease Social History Alcohol Use: none Smoking Status: Never smoker Drug Use: none Exam/Review of Systems Vital Signs Vitals Vital Signs Date Temp Pulse Resp B/P (MAP) Pulse Ox O2 O2 Flow FiO2 Time Delivery Rate 06/19/19 97.5 101 20 103/65 98 Nasal 2.0 16:44 (78) Cannula Exam Exam General: Patient is a pleasant female, respiratory distress noted with prol onged talking, answering questions appropriately HEENT: Atraumatic, normocephalic. The pupils are equal, round and reactive. Extraocular motor are intact Neck: Supple with full range of motion. No rigidity or meningismus Chest: Nontender Lungs: Diminished, no wheezing appreciated Heart: Normal S1-S2, Regular rhythm and rate. systolic murmur Abdomen: Soft , nontender, nondistended , bowel sounds are present. No guarding no rebound tenderness , No masses or organomegaly. No costovertebral temporal angle mass Extremities: trace lower extremity edema, no cyanosis or clubbing noted Skin: No rashes or lesions appreciated Neurologic: Normal mental status, speech normal, cranial nerves II through XII are intact, motor and sensory are intact, Additional Comments Home medications reviewed PROCEDURE: US Abdomen. CLINICAL INDICATION: abdominal pain TECHNIQUE: Multiple real-time images were acquired of the patient's right upper quadrant abdomen and retroperitoneum utilizing a high resolution transducer. COMPARISON: None FINDINGS: The liver demonstrates normal echogenicity. The liver is enlarged in size and no focal solid lesions are seen. The liver measures 19.8 cm in length. The portal vein is patent with normal direction of flow. No intrahepatic biliary dilatation is seen. The hepatic veins are dilated. No gallstones are identified within the gallbladder. There is no pericholecystic fluid or gallbladder wall thickening. The common bile duct measures 4.5 mm in maximal dimension. The visualized portions of the pancreas are unremarkable. The tail of the pancreas is not seen. No free fluid is identified. The right kidney is normal in size, and demonstrate normal echogenicity and cortical thickness. The right kidney measures 10.9 cm in long dimension. There is no evidence of hydronephrosis. There are no kidney stones. RPTAT: AA IMPRESSION: Mild hepatomegaly. No evidence of gallstones. .Gregor Rogers MD, MD Date Time Electronically viewed and signed by .Gregor Rogers MD, MD on 06/19/2019 14:33 PROCEDURE: XR Chest. CLINICAL INDICATION: Chest pain TECHNIQUE: Single portable view of the chest was obtained COMPARISON: 01/27/17 FINDINGS: The heart is enlarged. The lungs are clear. There is no pleural effusion or pneumothorax. RPTAT: AA IMPRESSION: Mild Cardiomegaly. .Gregor Rogers MD, MD Date Time Electronically viewed and signed by .Gregor Rogers MD, MD on 06/19/2019 12:24 PROCEDURE: US Lower extremity Venous. CLINICAL INDICATION: Bilateral lower extremity edema TECHNIQUE: Multiple sonographic images of the bilateral lower extremity deep venous system was obtained utilizing grayscale, color-flow, compressive sonography and doppler imaging with augmentation. The images were reviewed on a PACS workstation. COMPARISON: None. FINDINGS: There is normal compressibility and flow within the right common femoral, femoral , posterior tibial and popliteal veins. There is normal compressibility and flow within the left common femoral, femoral , posterior tibial and popliteal veins. RPTAT: AA IMPRESSION: No sonographic evidence for deep venous thrombosis. .Gregor Rogers MD, MD Date Time Electronically viewed and signed by .Gregor Rogers MD, MD on 06/19/2019 12:24 PROCEDURE: CT Pulmonary Angiogram. CLINICAL INDICATION: Chest pain and shortness of breath. TECHNIQUE: CT pulmonary angiogram and a CT scan of the chest with contrast was performed. The patient was scanned following the uncomplicated intravenous administration of 100 ml of Omnipaque-350 intravenous contrast. 2-D coronal re formatted images were obtained from the axial source images. In addition, 3-D post processing was performed. Total exam DLP is 643 mGy-cm. CTDIvol is 28 mGy. One or more of the following dose reduction techniques were used: Automated exposure control, adjustment of the mA and/or kV according to patient size, use of iterative reconstruction technique. DICOM images are available. COMPARISON: None available. FINDINGS: No filling defect or lack of enhancement to suggest pulmonary artery embolism. There are incompletely visualized bilateral breast prosthesis in place. There is dilatation of the main pulmonary artery measuring 3.6 cm. There are multiple bilateral upper lobe cysts, scarring, and fibrosis, and to a lesser extent in the bilateral lower lobes.. There is emphysema. There is no pulmonary nodule or mass lesion. There is no pneumothorax. There is mediastinal lymphadenopathy. An index pretracheal lymph node measures 1.2 cm. There is no pleural effusion. There is no pericardial effusion. The thoracic aorta is normal with no aneurysm or dissection. Images through the upper abdomen demonstrate postsurgical changes and noreen in the left upper quadrant. The osseous structures are normal with no fracture or lytic lesion. IMPRESSION: 1. No evidence of pulmonary artery embolism. 2. There are incompletely visualized bilateral breast prosthesis in place. There is dilatation of the main pulmonary artery measuring 3.6 cm. This is compatible with pulmonary hypertension. 3. There are multiple bilateral upper lobe cysts, scarring, and fibrosis, and to a lesser extent in the bilateral lower lobes.. There is emphysema. 4. Postsurgical changes and noreen in the left upper quadrant. 5. Mediastinal lymphadenopathy. RPTAT: QQ Physician Carly Date Time Electronically viewed and signed by Physician Carly on 06/19/2019 14:21 GABRIEL WEST MD Jun 19, 2019 18:21
[2019-06-19 18:26] VITALS: BP 111/73; PULSE 98; RESP 20
[2019-06-19 19:55] VITALS: BP 103/65; PULSE 96; RESP 20
[2019-06-19] MEDS: ALPRAZOLAM 0.5 MG TAB PO PRN (22:38)
[2019-06-19] MEDS: ZOLPIDEM 5 MG TAB PO PRN (22:38)
[2019-06-19] MEDS: INSULIN ASPART [NOVOLOG] 3 ML PEN SC SCH ×2 (22:40→22:42)
[2019-06-20] VITALS (7 sets, daily range): BP systolic 98–119; BP diastolic 58–76; PULSE 59–99; RESP 16–20
[2019-06-20] MEDS ORDERED: [UNRECOGNIZED DRUG - OTHER] XX SCH (06:30)
[2019-06-20] MEDS: PANTOPRAZOLE (EC) 40 MG TAB PO SCH (06:49)
[2019-06-20] MEDS: INSULIN ASPART [NOVOLOG] 3 ML PEN SC SCH ×4 (08:00→20:24)
[2019-06-20] MEDS ORDERED: POTASSIUM CHLORIDE (SR) 20 MEQ TAB PO STA (08:36)
[2019-06-20] MEDS: ESCITALOPRAM 10 MG TAB PO SCH (08:49)
[2019-06-20] MEDS: ENOXAPARIN 30 MG/0.3 ML SYG SC SCH (08:49)
[2019-06-20] MEDS ORDERED: MAGNESIUM OXIDE 400 MG TAB PO ONE (09:00)
[2019-06-20] MEDS ORDERED: TADALAFIL 20 MG PO SCH (09:00)
--- NOTE | 2019-06-20 11:58 | CONS ---
Consult Date/Type/Reason Admit Date/Time Jun 19, 2019 at 16:21 Initial Consult Date 06/19/19 Type of Consultation: CV Requesting Provider: GABRIEL WEST MD Date/Time of Note DATE: 06/20/19 TIME: 11:57 Subjective Cardiology follow-up progress note Subjective: Discussed with the staff telemetry was reviewed. Patient with no chest pain or pressure. PT WITH LESS SOB LESS EDEMA Objective: General: no acute distress HEENT: NC/AT. pupils are equal. round. NECK: . no stridor. CV: RRR. systolic murmur; no gallop or rubs. PULM: no wheezing or rhonchi. GI: SOFT, NT, ND, no rebound or guarding Extremity: trace B/L LE edema. no clubbing. neuro: awake and alert, OX3. Psych:calm and pleasant rectal: deferred EKG was personally reviewed showed normal sinus rhythm. No specific ST abnormality. Left atrial enlargement right atrial enlargement Chest x-ray done in the emergency room shows: Mild cardiomegaly CT pulmonary angiogram done in the emergency room shows: 1. No evidence of pulmonary artery embolism. 2. There are incompletely visualized bilateral breast prosthesis in place. There is dilatation of the main pulmonary artery measuring 3.6 cm. This is compatible with pulmonary hypertension. 3. There are multiple bilateral upper lobe cysts, scarring, and fibrosis, and to a lesser extent in the bilateral lower lobes.. There is emphysema. 4. Postsurgical changes and noreen in the left upper quadrant. 5. Mediastinal lymphadenopathy Objective Vitals Vital Signs Date Temp Pulse Resp B/P (MAP) Pulse Ox O2 O2 Flow FiO2 Time Delivery Rate 06/20/19 98.4 87 17 112/75 100 11:04 (87) 06/20/19 Nasal 2.0 08:00 Cannula Intake and Output 06/19/19 06/19/19 06/20/19 1515:00 23:00 07:00 IntakeIntake Total 50 ml BalanceBalance 50 ml Results/Medications Result Diagram: 06/20/19 0600 06/20/19 0513 Results 24 hrs Laboratory Tests Test 06/19/19 18:23 06/19/19 22:36 06/20/19 05:13 06/20/19 06:00 Bedside Glucose 175 151 Sodium Level 139 Potassium Level 3.5 Chloride Level 94 L Carbon Dioxide Level 38 H Anion Gap 7 Blood Urea Nitrogen 13 Creatinine 1.24 H Est Glomerular 54 L Filtrat Rate mL/min Glucose Level 123 Calcium Level 8.9 Magnesium Level 1.6 L Total Bilirubin 1.0 Direct Bilirubin 0.00 # Indirect Bilirubin 1.0 Aspartate Amino 160 H Transf (AST/SGOT) Alanine 218 H Aminotransferase (AL T/SGPT) Alkaline Phosphatase 502 H Total Protein 6.6 # Albumin 3.1 L Globulin 3.50 H Albumin/Globulin 0.88 Ratio Thyroid Stimulating 6.870 H Hormone (TSH) White Blood Count 6.8 Red Blood Count 4.04 L Hemoglobin 10.1 L Hematocrit 32.9 L Mean Corpuscular 81.4 L Volume Mean Corpuscular 25.0 L Hemoglobin Mean Corpuscular 30.7 L Hemoglobin Concent Red Cell 25.2 H Distribution Width Platelet Count 165 Mean Platelet Volume Immature 0.100 Granulocytes % Neutrophils % 41.7 Lymphocytes % 38.6 Monocytes % 15.3 H Eosinophils % 2.8 Basophils % 1.5 Nucleated Red Blood 1.2 H Cells % Immature 0.010 Granulocytes # Neutrophils # 2.8 Lymphocytes # 2.6 Monocytes # 1.0 H Eosinophils # 0.2 Basophils # 0.1 Nucleated Red Blood 0.1 H Cells # Test 06/20/19 08:02 06/20/19 11:48 Bedside Glucose 120 181 Home Meds Reported Medications Zolpidem Tartrate* (Zolpidem Tartrate*) 10 Mg Tablet, 10 MG PO QHS PRN for INSOMNIA, #30 TAB 07/13/18 Pantoprazole* (Pantoprazole*) 40 Mg Tablet.dr, 40 MG PO AC BREAKFAST, TAB 07/13/18 Multivitamin with Minerals (Multivitamins with Minerals) 1 Each Tablet, 1 EACH PO DAILY, TAB 07/13/18 Metformin Hcl* (Metformin Hcl*) 500 Mg Tablet, 250 MG PO WITH BREAKFAST DINNE, #60 TAB 07/13/18 Losartan Potassium* (Losartan Potassium*) 25 Mg Tablet, 25 MG PO DAILY, TAB 07/13/18 Hydroxyzine Hcl* (Hydroxyzine Hcl*) 50 Mg Tablet, 50 MG PO QHS PRN for ITCHING, #30 TAB 07/13/18 Gabapentin* (Gabapentin*) 100 Mg Capsule, 100 MG PO NEEDED, #90 CAP TAKE 1 TO 3 CAP PRN 07/13/18 Escitalopram Oxalate* (Escitalopram Oxalate*) 20 Mg Tablet, 20 MG PO DAILY, #30 TAB 07/13/18 Diphenhydramine Hcl* (Benadryl*) 50 Mg Cap, 50 MG PO NEEDED PRN for ITCHING, CAP 07/13/18 Alprazolam* (Alprazolam*) 0.5 Mg Tablet, 0.5 MG PO Q8H PRN for ANXIETY, TAB 07/13/18 Albuterol Sulfate (Proair Respiclick) 90 Mcg Aer.pow.ba, 1 PUFF INHALATION Q4 PRN for WHEEZING AND SOB, #1 BOTTLE 07/13/18 Albuterol Sulfate* (Albuterol Sulfate* Neb) 0.083%-3 Ml Neb, 2.5 MG NEB Q3H PRN for WHEEZING AND SOB, #30 VIAL 07/13/18 Discontinued Reported Medications Tadalafil (Cialis) 20 Mg Tablet, 20 MG PO DAILY, TAB 07/13/18 Ibuprofen* (Ibuprofen*) 400 Mg Tablet, 400 MG PO Q8H PRN for PAIN, TAB 07/13/18 Discontinued Scripts Levofloxacin* (Levaquin*) 500 Mg Tablet, 500 MG PO DAILY for 5 Days, TAB Prov:SONDRA AGUERO 07/14/18 Sulfamethoxazole/Trimethoprim (Sulfamethoxazole-Tmp Ds Tablet) 1 Each Tablet, 1 TAB PO BID for 5 Days, TAB Prov:SONDRA AGUERO 07/14/18 Mupirocin* (Bactroban*) 2% -22 Gram Oint...g., 1 APPLIC TOP TID, #1 TUB Prov:SONDRA AGUERO 07/14/18 Medications Current Medications Albuterol (Proventil 0.083% (Neb)) 2.5 mg Q3H RESP THERAPY PRN NEB WHEEZING AND SOB; Start 06/19/19 at 15:00 Alprazolam (Xanax) 0.5 mg Q8H PRN PO ANXIETY Last administered on 06/19/19at 22:38; Admin Dose 0.5 MG; Start 06/19/19 at 15:00 Diphenhydramine HCl (Benadryl) 50 mg Q6H PRN PO ITCHING; Start 06/19/19 at 15:00 Escitalopram Oxalate (Lexapro) 20 mg DAILY PO ; Start 06/20/19 at 09:00 Pantoprazole (Protonix Tab) 40 mg AC BREAKFAST PO Last administered on 06/20/19at 06:49; Admin Dose 40 MG; Start 06/20/19 at 07:00 Zolpidem Tartrate (Ambien) 10 mg QHS PRN PO INSOMNIA Last administered on 06/19/19at 22:38; Admin Dose 10 MG; Start 06/19/19 at 15:00 Miscellaneous Information 20 mg DAILY PO ; Start 06/20/19 at 09:00; Status UNV IV Flush (NS 3 ml) 3 ml PER PROTOCOL IV ; Start 06/19/19 at 15:00 Ondansetron HCl (Zofran Inj) 4 mg Q6H PRN IV NAUSEA/VOMITING; Start 06/19/19 at 15:00 Acetaminophen (Tylenol Tab) 650 mg Q6H PRN PO .PAIN 1-3 OR TEMP; Start 06/19/19 at 15:00 Docusate Sodium (Colace) 100 mg Q12H PRN PO .CONSTIPATION; Start 06/19/19 at 15:00 Magnesium Hydroxide (Milk Of Mag) 30 ml DAILY PRN PO .CONSTIPATION; Start 06/19/19 at 15:00 Enoxaparin Sodium (Lovenox) 30 mg DAILY SC ; Start 06/20/19 at 09:00 Insulin Aspart (Novolog Insulin Pen) NOVOLOG *MILD* ALGORITHM WITH MEALS BEDTIME SC ; Start 06/19/19 at 18:00 Miscellaneous Information 1 ea NOTE XX ; Start 06/19/19 at 15:30 Glucose (Glutose) 15 gm Q15M PRN PO DECREASED GLUCOSE; Start 06/19/19 at 15:30 Glucose (Glutose) 22.5 gm Q15M PRN PO DECREASED GLUCOSE; Start 06/19/19 at 15:30 Dextrose (D50w Syringe) 25 ml Q15M PRN IV DECREASED GLUCOSE; Start 06/19/19 at 15:30 Dextrose (D50w Syringe) 50 ml Q15M PRN IV DECREASED GLUCOSE; Start 06/19/19 at 15:30 Glucagon (Glucagen) 1 mg Q15M PRN IM DECREASED GLUCOSE; Start 06/19/19 at 15:30 Glucose (Glutose) 15 gm Q15M PRN BUCCAL DECREASED GLUCOSE; Start 06/19/19 at 15:30 Miscellaneous Information (*Order Clarification Bulletin) MEDICATION REQUIRES CLARIFICATI... Q8H XX ; Start 06/20/19 at 06:30 Assessment/Plan Hospital Course (Demo Recall) 1. Severe pulmonary hypertension 2. Sarcoid lung disease 3. Right-sided heart failure secondary to above 4. History of diabetes 5. Sarcoidosis 6. Transaminitis [place] secondary to congestion vs others 7. Depression 8. History of thyroid disorder Recommendations: Diuretics as needed Pulmonary consultation. will start revatio DVT prophylaxis check thyroid function test Oxygen supplement Thank you for his referral. We will continue to follow along with you MARY KATE NORRIS MD [facility] MARY KATE NORRIS MD Jun 20, 2019 11:58
[2019-06-20] MEDS: SILDENAFIL 20 MG TAB PO SCH ×2 (13:38→20:25)
--- NOTE | 2019-06-20 14:59 | PN ---
Date/Time of Note Date/Time of Note DATE: 06/20/19 TIME: 14:54 Assessment/Plan VTE Prophylaxis Risk score (from Ns)>0 risk: 2 SCD applied (from Ns): Yes Pharmacological prophylaxis: NA/contraindicated Pharm contraindication: low risk/ambulating Lines/Catheters IV Catheter Type (from Nrs): Saline Lock Assessment/Plan Assessment/Plan 1. Acute hypoxic respiratory failure- improving - most likely secondary to right sided heart failure and pulmonary HTN - continue O2 - Pulmonology consultation placed for further recommendations 2. Right sided heart failure - Cardiology on board and appreciate recommendations - BNP elevated - ECHO results noted - Lasix as needed. no pedal edema appreciated and will hold off on Lasix 3. Transaminitis- improving - most likely secondary to congestion - US noted with no acute issues 4. DEANNA - most likely ATN - renal function nl in 2018. Will avoid nephrotoxic agents and monitor renal function 5. hypoMag - replacing - continue monitoring 6. Elevated d-dimer - CTA negative for PE 7. Pulmonary HTN - follows with Pulm at [facility] and working on getting on a transplant list - Believes she takes Sildenafil daily 8. Disposition - Once respiratory status improves, will d/c home Result Diagram: 06/20/19 0600 06/20/19 0513 Results 24hrs Laboratory Tests Test 06/19/19 18:23 06/19/19 22:36 06/20/19 05:13 06/20/19 06:00 Bedside Glucose 175 151 Sodium Level 139 Potassium Level 3.5 Chloride Level 94 L Carbon Dioxide Level 38 H Anion Gap 7 Blood Urea Nitrogen 13 Creatinine 1.24 H Est Glomerular 54 L Filtrat Rate mL/min Glucose Level 123 Calcium Level 8.9 Magnesium Level 1.6 L Total Bilirubin 1.0 Direct Bilirubin 0.00 # Indirect Bilirubin 1.0 Aspartate Amino 160 H Transf (AST/SGOT) Alanine 218 H Aminotransferase (AL T/SGPT) Alkaline Phosphatase 502 H Total Protein 6.6 # Albumin 3.1 L Globulin 3.50 H Albumin/Globulin 0.88 Ratio Thyroid Stimulating 6.870 H Hormone (TSH) White Blood Count 6.8 Red Blood Count 4.04 L Hemoglobin 10.1 L Hematocrit 32.9 L Mean Corpuscular 81.4 L Volume Mean Corpuscular 25.0 L Hemoglobin Mean Corpuscular 30.7 L Hemoglobin Concent Red Cell 25.2 H Distribution Width Platelet Count 165 Mean Platelet Volume Immature 0.100 Granulocytes % Neutrophils % 41.7 Lymphocytes % 38.6 Monocytes % 15.3 H Eosinophils % 2.8 Basophils % 1.5 Nucleated Red Blood 1.2 H Cells % Immature 0.010 Granulocytes # Neutrophils # 2.8 Lymphocytes # 2.6 Monocytes # 1.0 H Eosinophils # 0.2 Basophils # 0.1 Nucleated Red Blood 0.1 H Cells # Test 06/20/19 08:02 06/20/19 11:48 Bedside Glucose 120 181 Subjective 24 Hr Interval Summary Free Text/Dictation Patient states shes feeling a little winded after working with physical therapy but feeling better. Discussed need to continue on Sildenafil after discharge. Denies any new issues. Exam/Review of Systems Exam Vitals Vital Signs Date Temp Pulse Resp B/P (MAP) Pulse Ox O2 O2 Flow FiO2 Time Delivery Rate 06/20/19 98.4 87 17 112/75 100 11:04 (87) 06/20/19 Nasal 2.0 08:00 Cannula Intake and Output 06/19/19 06/19/19 06/20/19 1515:00 23:00 07:00 IntakeIntake Total 50 ml BalanceBalance 50 ml Exam General: Patient is a pleasant female, mild respiratory distress with prolonged talking Neck: Supple Lungs: Diminished, no wheezing appreciated Heart: Normal S1-S2, Regular rhythm and rate. systolic murmur Abdomen: Soft , nontender, nondistended , bowel sounds are present. No guarding no rebound tenderness Extremities: trace lower extremity edema, no cyanosis or clubbing noted Skin: No rashes or lesions appreciated Neurologic: Normal mental status, speech normal, cranial nerves II through XII are intact, motor and sensory are intact, Results Results 24hrs Laboratory Tests Test 06/19/19 18:23 06/19/19 22:36 06/20/19 05:13 06/20/19 06:00 Bedside Glucose 175 151 Sodium Level 139 Potassium Level 3.5 Chloride Level 94 L Carbon Dioxide Level 38 H Anion Gap 7 Blood Urea Nitrogen 13 Creatinine 1.24 H Est Glomerular 54 L Filtrat Rate mL/min Glucose Level 123 Calcium Level 8.9 Magnesium Level 1.6 L Total Bilirubin 1.0 Direct Bilirubin 0.00 # Indirect Bilirubin 1.0 Aspartate Amino 160 H Transf (AST/SGOT) Alanine 218 H Aminotransferase (AL T/SGPT) Alkaline Phosphatase 502 H Total Protein 6.6 # Albumin 3.1 L Globulin 3.50 H Albumin/Globulin 0.88 Ratio Thyroid Stimulating 6.870 H Hormone (TSH) White Blood Count 6.8 Red Blood Count 4.04 L Hemoglobin 10.1 L Hematocrit 32.9 L Mean Corpuscular 81.4 L Volume Mean Corpuscular 25.0 L Hemoglobin Mean Corpuscular 30.7 L Hemoglobin Concent Red Cell 25.2 H Distribution Width Platelet Count 165 Mean Platelet Volume Immature 0.100 Granulocytes % Neutrophils % 41.7 Lymphocytes % 38.6 Monocytes % 15.3 H Eosinophils % 2.8 Basophils % 1.5 Nucleated Red Blood 1.2 H Cells % Immature 0.010 Granulocytes # Neutrophils # 2.8 Lymphocytes # 2.6 Monocytes # 1.0 H Eosinophils # 0.2 Basophils # 0.1 Nucleated Red Blood 0.1 H Cells # Test 06/20/19 08:02 06/20/19 11:48 Bedside Glucose 120 181 Medications Medication Current Medications Albuterol (Proventil 0.083% (Neb)) 2.5 mg Q3H RESP THERAPY PRN NEB WHEEZING AND SOB; Start 06/19/19 at 15:00 Alprazolam (Xanax) 0.5 mg Q8H PRN PO ANXIETY Last administered on 06/19/19at 22:38; Admin Dose 0.5 MG; Start 06/19/19 at 15:00 Diphenhydramine HCl (Benadryl) 50 mg Q6H PRN PO ITCHING; Start 06/19/19 at 15:00 Escitalopram Oxalate (Lexapro) 20 mg DAILY PO ; Start 06/20/19 at 09:00 Pantoprazole (Protonix Tab) 40 mg AC BREAKFAST PO Last administered on 06/20/19at 06:49; Admin Dose 40 MG; Start 06/20/19 at 07:00 Zolpidem Tartrate (Ambien) 10 mg QHS PRN PO INSOMNIA Last administered on 06/19/19at 22:38; Admin Dose 10 MG; Start 06/19/19 at 15:00 IV Flush (NS 3 ml) 3 ml PER PROTOCOL IV ; Start 06/19/19 at 15:00 Ondansetron HCl (Zofran Inj) 4 mg Q6H PRN IV NAUSEA/VOMITING; Start 06/19/19 at 15:00 Acetaminophen (Tylenol Tab) 650 mg Q6H PRN PO .PAIN 1-3 OR TEMP; Start 06/19/19 at 15:00 Docusate Sodium (Colace) 100 mg Q12H PRN PO .CONSTIPATION; Start 06/19/19 at 15:00 Magnesium Hydroxide (Milk Of Mag) 30 ml DAILY PRN PO .CONSTIPATION; Start 06/19/19 at 15:00 Enoxaparin Sodium (Lovenox) 30 mg DAILY SC ; Start 06/20/19 at 09:00 Insulin Aspart (Novolog Insulin Pen) NOVOLOG *MILD* ALGORITHM WITH MEALS BEDTIME SC Last administered on 06/20/19at 12:15; Admin Dose 2 UNIT; Start 06/19/19 at 18:00 Miscellaneous Information 1 ea NOTE XX ; Start 06/19/19 at 15:30 Glucose (Glutose) 15 gm Q15M PRN PO DECREASED GLUCOSE; Start 06/19/19 at 15:30 Glucose (Glutose) 22.5 gm Q15M PRN PO DECREASED GLUCOSE; Start 06/19/19 at 15:30 Dextrose (D50w Syringe) 25 ml Q15M PRN IV DECREASED GLUCOSE; Start 06/19/19 at 15:30 Dextrose (D50w Syringe) 50 ml Q15M PRN IV DECREASED GLUCOSE; Start 06/19/19 at 15:30 Glucagon (Glucagen) 1 mg Q15M PRN IM DECREASED GLUCOSE; Start 06/19/19 at 15:30 Glucose (Glutose) 15 gm Q15M PRN BUCCAL DECREASED GLUCOSE; Start 06/19/19 at 15:30 Sildenafil Citrate (Revatio) 20 mg TID PO Last administered on 06/20/19at 13:38; Admin Dose 20 MG; Start 06/20/19 at 13:00 GABRIEL WEST MD Jun 20, 2019 14:59
[2019-06-21] MEDS: ZOLPIDEM 5 MG TAB PO PRN (00:45)
[2019-06-21] MEDS: ALPRAZOLAM 0.5 MG TAB PO PRN (00:45)
[2019-06-21 04:03] VITALS: BP 117/70; PULSE 85; RESP 16
[2019-06-21] MEDS: PANTOPRAZOLE (EC) 40 MG TAB PO SCH (06:37)
[2019-06-21 07:35] VITALS: PULSE 78; RESP 18
[2019-06-21] MEDS: INSULIN ASPART [NOVOLOG] 3 ML PEN SC SCH ×3 (08:00→17:08)
--- NOTE | 2019-06-21 08:26 | CONS ---
Consult Date/Type/Reason Admit Date/Time Jun 19, 2019 at 16:21 Initial Consult Date 06/19/19 Type of Consultation: CV Requesting Provider: GABRIEL WEST MD Date/Time of Note DATE: 06/21/19 TIME: 08:24 Subjective Cardiology follow-up progress note Subjective: Discussed with the staff telemetry was reviewed. Patient with no chest pain or pressure. PT WITH LESS SOB LESS EDEMA and she is feeling much better today She has not been walking around however Objective: General: no acute distress HEENT: NC/AT. pupils are equal. round. NECK: . no stridor. CV: RRR. systolic murmur; no gallop or rubs. PULM: no wheezing or rhonchi. GI: SOFT, NT, ND, no rebound or guarding Extremity: trace B/L LE edema. no clubbing. neuro: awake and alert, OX3. Psych:calm and pleasant rectal: deferred EKG was personally reviewed showed normal sinus rhythm. No specific ST abnormality. Left atrial enlargement right atrial enlargement Chest x-ray done in the emergency room shows: Mild cardiomegaly CT pulmonary angiogram done in the emergency room shows: 1. No evidence of pulmonary artery embolism. 2. There are incompletely visualized bilateral breast prosthesis in place. There is dilatation of the main pulmonary artery measuring 3.6 cm. This is compatible with pulmonary hypertension. 3. There are multiple bilateral upper lobe cysts, scarring, and fibrosis, and to a lesser extent in the bilateral lower lobes.. There is emphysema. 4. Postsurgical changes and noreen in the left upper quadrant. 5. Mediastinal lymphadenopathy Echocardiogram was personally reviewed which shows: There is severe enlargement of right atrium. Moderate right ventricular systolic dysfunction. Severe enlargement of right ventricle. Abnormal (paradoxical) septal motion. Flattened septum in systole and diastole consistent with increased RV pressure and volume overload. Normal left ventricular cavity size. Mild concentric left ventricular hypertrophy. Paradoxical septal motion consistent with IVCD or bundle branch block. Ejection fraction is visually estimated at 60 %. Abnormal Diastolic Function. Mild mitral leaflet calcification. Mild mitral annular calcification. Trace mitral regurgitation. No significant aortic stenosis or insufficiency. Aortic cusps appear mildly calcified. severe pulmonary HTN: The estimated Peak RVSP is 115 mmHg. Tricuspid valve appears mildly thickened. There is severe tricuspid regurgitation. n. Dilated IVC without respiratory collapse consistent with elevated right atrial pressure. Objective Vitals Vital Signs Date Temp Pulse Resp B/P (MAP) Pulse Ox O2 O2 Flow FiO2 Time Delivery Rate 06/21/19 Nasal 2.0 07:52 Cannula 06/21/19 98.2 78 18 97 07:35 Intake and Output 06/20/19 06/20/19 06/21/19 1515:00 23:00 07:00 IntakeIntake Total 540 ml 345 ml OutputOutput Total 200 ml 500 ml BalanceBalance 540 ml 145 ml -500 ml Results/Medications Result Diagram: 06/21/19 0504 06/21/19 0504 Results 24 hrs Laboratory Tests Test 06/20/19 11:48 06/20/19 17:36 06/20/19 20:22 06/21/19 05:04 Bedside Glucose 181 127 145 White Blood Count 5.6 Red Blood Count 4.10 L Hemoglobin 10.2 L Hematocrit 33.2 L Mean Corpuscular 81.0 L Volume Mean Corpuscular 24.9 L Hemoglobin Mean Corpuscular 30.7 L Hemoglobin Concent Red Cell 25.2 H Distribution Width Platelet Count 165 Mean Platelet Volume Immature 0.200 Granulocytes % Neutrophils % 41.6 Lymphocytes % 37.4 Monocytes % 16.2 H Eosinophils % 3.4 Basophils % 1.2 Nucleated Red Blood 1.8 H Cells % Immature 0.010 Granulocytes # Neutrophils # 2.3 Lymphocytes # 2.1 Monocytes # 0.9 Eosinophils # 0.2 Basophils # 0.1 Nucleated Red Blood 0.1 H Cells # Sodium Level 141 Potassium Level 4.1 Chloride Level 96 L Carbon Dioxide Level 39 H Anion Gap 6 Blood Urea Nitrogen 10 Creatinine 0.96 Est Glomerular > 60 Filtrat Rate mL/min Glucose Level 124 Calcium Level 8.9 Magnesium Level 1.5 L Total Bilirubin 0.8 Direct Bilirubin 0.00 Indirect Bilirubin 0.8 Aspartate Amino 118 H Transf (AST/SGOT) Alanine 168 H Aminotransferase (AL T/SGPT) Alkaline Phosphatase 468 H Total Protein 6.8 Albumin 3.0 L Globulin 3.80 H Albumin/Globulin 0.78 Ratio Test 06/21/19 07:40 Bedside Glucose 115 Home Meds Reported Medications Zolpidem Tartrate* (Zolpidem Tartrate*) 10 Mg Tablet, 10 MG PO QHS PRN for INSOMNIA, #30 TAB 07/13/18 Pantoprazole* (Pantoprazole*) 40 Mg Tablet.dr, 40 MG PO AC BREAKFAST, TAB 07/13/18 Multivitamin with Minerals (Multivitamins with Minerals) 1 Each Tablet, 1 EACH PO DAILY, TAB 07/13/18 Metformin Hcl* (Metformin Hcl*) 500 Mg Tablet, 250 MG PO WITH BREAKFAST DINNE, #60 TAB 07/13/18 Losartan Potassium* (Losartan Potassium*) 25 Mg Tablet, 25 MG PO DAILY, TAB 07/13/18 Hydroxyzine Hcl* (Hydroxyzine Hcl*) 50 Mg Tablet, 50 MG PO QHS PRN for ITCHING, #30 TAB 07/13/18 Gabapentin* (Gabapentin*) 100 Mg Capsule, 100 MG PO NEEDED, #90 CAP TAKE 1 TO 3 CAP PRN 07/13/18 Escitalopram Oxalate* (Escitalopram Oxalate*) 20 Mg Tablet, 20 MG PO DAILY, #30 TAB 07/13/18 Diphenhydramine Hcl* (Benadryl*) 50 Mg Cap, 50 MG PO NEEDED PRN for ITCHING, CAP 07/13/18 Alprazolam* (Alprazolam*) 0.5 Mg Tablet, 0.5 MG PO Q8H PRN for ANXIETY, TAB 07/13/18 Albuterol Sulfate (Proair Respiclick) 90 Mcg Aer.pow.ba, 1 PUFF INHALATION Q4 PRN for WHEEZING AND SOB, #1 BOTTLE 07/13/18 Albuterol Sulfate* (Albuterol Sulfate* Neb) 0.083%-3 Ml Neb, 2.5 MG NEB Q3H PRN for WHEEZING AND SOB, #30 VIAL 07/13/18 Discontinued Reported Medications Tadalafil (Cialis) 20 Mg Tablet, 20 MG PO DAILY, TAB 07/13/18 Ibuprofen* (Ibuprofen*) 400 Mg Tablet, 400 MG PO Q8H PRN for PAIN, TAB 07/13/18 Discontinued Scripts Levofloxacin* (Levaquin*) 500 Mg Tablet, 500 MG PO DAILY for 5 Days, TAB Prov:SONDRA AGUERO 07/14/18 Sulfamethoxazole/Trimethoprim (Sulfamethoxazole-Tmp Ds Tablet) 1 Each Tablet, 1 TAB PO BID for 5 Days, TAB Prov:SONDRA AGUERO 07/14/18 Mupirocin* (Bactroban*) 2% -22 Gram Oint...g., 1 APPLIC TOP TID, #1 TUB Prov:SONDRA AGUERO F 07/14/18 Medications Current Medications Albuterol (Proventil 0.083% (Neb)) 2.5 mg Q3H RESP THERAPY PRN NEB WHEEZING AND SOB; Start 06/19/19 at 15:00 Alprazolam (Xanax) 0.5 mg Q8H PRN PO ANXIETY Last administered on 06/21/19at 00:45; Admin Dose 0.5 MG; Start 06/19/19 at 15:00 Diphenhydramine HCl (Benadryl) 50 mg Q6H PRN PO ITCHING; Start 06/19/19 at 15:00 Escitalopram Oxalate (Lexapro) 20 mg DAILY PO ; Start 06/20/19 at 09:00 Pantoprazole (Protonix Tab) 40 mg AC BREAKFAST PO Last administered on 06/21/19at 06:37; Admin Dose 40 MG; Start 06/20/19 at 07:00 Zolpidem Tartrate (Ambien) 10 mg QHS PRN PO INSOMNIA Last administered on 06/21/19at 00:45; Admin Dose 10 MG; Start 06/19/19 at 15:00 IV Flush (NS 3 ml) 3 ml PER PROTOCOL IV ; Start 06/19/19 at 15:00 Ondansetron HCl (Zofran Inj) 4 mg Q6H PRN IV NAUSEA/VOMITING; Start 06/19/19 at 15:00 Acetaminophen (Tylenol Tab) 650 mg Q6H PRN PO .PAIN 1-3 OR TEMP; Start 06/19/19 at 15:00 Docusate Sodium (Colace) 100 mg Q12H PRN PO .CONSTIPATION; Start 06/19/19 at 15:00 Magnesium Hydroxide (Milk Of Mag) 30 ml DAILY PRN PO .CONSTIPATION; Start 06/19/19 at 15:00 Enoxaparin Sodium (Lovenox) 30 mg DAILY SC ; Start 06/20/19 at 09:00 Insulin Aspart (Novolog Insulin Pen) NOVOLOG *MILD* ALGORITHM WITH MEALS BED TIME SC Last administered on 06/20/19at 12:15; Admin Dose 2 UNIT; Start 06/19/19 at 18:00 Miscellaneous Information 1 ea NOTE XX ; Start 06/19/19 at 15:30 Glucose (Glutose) 15 gm Q15M PRN PO DECREASED GLUCOSE; Start 06/19/19 at 15:30 Glucose (Glutose) 22.5 gm Q15M PRN PO DECREASED GLUCOSE; Start 06/19/19 at 15:30 Dextrose (D50w Syringe) 25 ml Q15M PRN IV DECREASED GLUCOSE; Start 06/19/19 at 15:30 Dextrose (D50w Syringe) 50 ml Q15M PRN IV DECREASED GLUCOSE; Start 06/19/19 at 15:30 Glucagon (Glucagen) 1 mg Q15M PRN IM DECREASED GLUCOSE; Start 06/19/19 at 15:30 Glucose (Glutose) 15 gm Q15M PRN BUCCAL DECREASED GLUCOSE; Start 06/19/19 at 15:30 Sildenafil Citrate (Revatio) 20 mg TID PO Last administered on 06/20/19at 13:38; Admin Dose 20 MG; Start 06/20/19 at 13:00 Assessment/Plan Hospital Course (Demo Recall) 1. Severe pulmonary hypertension 2. Sarcoid lung disease 3. Right-sided heart failure secondary to above 4. History of diabetes 5. Sarcoidosis 6. Transaminitis possibly secondary to congestion vs others 7. Depression 8. History of thyroid disorder Recommendations: Diuretics as needed Pulmonary consultation. cont revatio DVT prophylaxis check thyroid function test Oxygen supplement Thank you for his referral. We will continue to follow along with you MARY KATE NORRIS MD [facility] MARY KATE NORRIS MD Jun 21, 2019 08:26
[2019-06-21] MEDS ORDERED: MAGNESIUM SULFATE 2 GM/50 ML 50 ML IVPB ONE (09:00)
[2019-06-21] MEDS: ENOXAPARIN 30 MG/0.3 ML SYG SC SCH (09:00)
[2019-06-21] MEDS: ESCITALOPRAM 10 MG TAB PO SCH (09:14)
[2019-06-21] MEDS: SILDENAFIL 20 MG TAB PO SCH ×2 (09:17→12:06)
[2019-06-21] MEDS ORDERED: SILD20TA13 PO (10:10)
--- NOTE | 2019-06-21 10:11 | PDOCDIS ---
Discharge Instructions CONDITION [id number] Patient Condition: [id number] Good HOME CARE INSTRUCTIONS: [id number] Diet Instructions: [id number] FOLLOW UP/APPOINTMENTS Follow-up Plan pcp 1 week [facility] in [place] MD Jun 21, 2019 10:11
[2019-06-21 10:22] VITALS: BP 100/50; RESP 18
[2019-06-21] MEDS ORDERED: MAGNESIUM SULFATE 4 GM/100 ML 100 ML IVPB ONE (12:00)
[2019-06-21 15:44] VITALS: BP 106/56; PULSE 65; RESP 18
--- NOTE | 2019-06-22 06:18 | DS ---
DATE OF ADMISSION: 06/19/2019 DATE OF DISCHARGE: 06/21/2019 DISCHARGE DIAGNOSES: 1. A 58-year-old female with severe pulmonary hypertension. 2. Right-sided heart failure. 3. Transaminitis, most likely due to heart failure. 4. Acute kidney injury, resolved. 5. Hypomagnesemia, status post supplementation. HOSPITAL COURSE: A 58-year-old [place] female with history of severe pulmonary hypertension , type 2 diabetes mellitus, sarcoidosis, and hyperlipidemia, presented to the emergency room with alberto rtness of breath and bilateral lower extremity swelling for the last 2 days prior to admission. The patient was started on diuresis following admission. She was seen in consultation by the cardiologis t, Dr. Elaine. A 2D echo showed a markedly dilated right atrium and right ventricle. Findings were consistent with right-sided heart failure due to severe pulmonary hypertension. The patient has sign ificant improvement with diuretic therapy. Her right lower extremity edema resolved. The patient is followed at [facility]. She has an appointment in the morning and would like to be discharged. The janiya t was started on Revatio. She is in a stable condition for discharge. Lung exam was clear to auscul tation bilaterally. MEDICATIONS ON DISCHARGE: 1. Revatio 20 mg t.i.d. 2. Albuterol as needed. 3. Alprazolam 0.5 mg every 8 hours as needed. 4. Lexapro 20 mg daily. 5. Gabapentin 100 mg as needed. 6. Hydroxyzine 50 mg at nighttime as needed. 7. Losartan 25 mg daily. 8. Metformin 250 mg b.i.d. 9. Protonix 40 mg daily. 10. Ambien 10 mg at bedtime as needed. Follow up with PCP in 1 week. Follow up with C in a.m. Dictated By: KETTY DELUNA/TRISTAN Conf#: [id number] DID#: [id number] CC: GABRIEL WEST MD;*EndCC*
== END 2019-06-21 17:45 | disposition home or self-care (01) ==
LOC: E/R 11:18 → 6WM 16:21
PROVIDERS: ADMIT Internal Medicine; ATTEND Internal Medicine
DX: I27.20 Pulmonary hypertension, unspecified (principal); I11.0 Hypertensive heart disease with heart failure; I50.9 Heart failure, unspecified; R74.0 Nonspecific elevation of levels of transaminase and lactic acid dehydrogenase [LDH]; N17.9 Acute kidney failure, unspecified; E83.42 Hypomagnesemia; E78.00 Pure hypercholesterolemia, unspecified; E78.5 Hyperlipidemia, unspecified; D64.9 Anemia, unspecified; I25.10 Atherosclerotic heart disease of native coronary artery without angina pectoris; J45.909 Unspecified asthma, uncomplicated; D86.0 Sarcoidosis of lung; F32.9 Major depressive disorder, single episode, unspecified
CPT/HCPCS: 36415; 71045; 71275; 76705; 80053; 82962; 83036; 83735; 83880; 84443; 84484; 85025; 85378; 85610; 85730; 93005; 93306; 93970; 96365; 96375; 97110; 97161; 97165; 97535; 99285; G0378; J1815; J1940; J3475; Q9967; J1650